=== PATIENT | female | born 1940 | race Caucasian/White ===

== ENCOUNTER 2025-01-15 10:22 | Inpatient (IN) | payer MEDICARE, MEDICAID, SELFPAY ==
[2025-01-13] VITALS (9 sets, daily range): BP systolic 140–203; BP diastolic 84–180; BMI 23.8
[2025-01-13 18:05] LABS: % Basophils 0.5 % (0-2); % Eosinophils 1.9 % (0-6); % Immature Granulocytes 0.2 % (0-0.5); % Lymphocytes 36.7 % (20.5-51.1); % Monocytes 9.5 % (1.7-9.3); % Neutrophils 51.2 % (42.2-75.2); Absolute Eosinophils 0.1 10^3/uL (0-0.7); Absolute Lymphocytes 2.2 10^3/uL (1.2-3.4); Absolute Monocytes 0.6 10^3/uL (0.1-0.6); Hematocrit 36.8 % (37.0-47.0); Hemoglobin 12.7 g/dL (12.0-16.0); Mean Corp Hgb Conc. 34.5 g/dL (33.0-37.0); Mean Corpuscular Hgb 31.8 pg (27.0-31.0); Nucleated Red Blood Cells % 0 %; Platelet Count 172 10^3/uL (130-400); White Blood Cell Count 5.9 10^3/uL (4.8-10.8)
[2025-01-13 18:20] LABS: ALT (SGPT) 19 U/L (0-35); AST (SGOT) 29 U/L (14-36); Albumin 4.3 g/dl (3.5-5.0); Alkaline Phosphatase 129 U/L (38-126); Blood Urea Nitrogen 26 mg/dl (7-17); Carbon Dioxide 27 mmol/L (22-30); Chloride 100 mmol/L (98-107); Glucose 107 mg/dl (70-99); Potassium 4.3 mmol/L (3.5-5.1); Sodium 136 mmol/L (135-145); Total Bilirubin 0.8 mg/dl (0.2-1.3); eGFR > 60.00
[2025-01-13 18:25] LABS: Troponin I 0.013 ng/ml
--- NOTE | 2025-01-13 21:55 | ED.GENMED ---
History of Present Illness
General
Chief Complaint: Heart Rate Problem
Source: patient and records
Time Seen by Provider: 01/13/25 21:29
History of Present Illness
History of Present Illness:
84-year-old female with past medical history of atrial fibrillation status post pacemaker placement, hypertension, hyperlipidemia presenting to the ER from [facility] for evaluation after patient was performing her
rehab yesterday around 10 AM and while performing the activity noticed less than a minutes worth of palpitations and following this felt off for the rest of the day. Based off of report patient states that she was told she went into an episode of
ventricular tachycardia that was found on her pacemaker and this correlated with the time when patient was working out. Patient is on sotalol 40 mg twice daily and reports good compliance with this. She otherwise denies any chest pain, shortness
of breath or any other concerns.
Past History
Past History
ED Past Medical History: Arrthythmia, HTN and Hypercholesterolemia
ED Past Surgical History: Appendectomy, Cardiac, Tonsilectomy and Urological
Social History
Tobacco: Non-smoker
Alcohol: None
Drug: None
Personal: Other
Living: retirement
Employment: Not employed
Family History
Family History: Unable to obtain
Review of Systems
Review of Systems
All Other Systems: ROS reviewed and negative except as documented in HPI and ROS
Phy Exam
Physical Exam
Physical Exam:
GENERAL: Alert , in no apparent distress, Smiling and pleasant
EYE: conjunctiva clear
NECK: Supple
ENT: o/p clr, mmm.
CARDIAC: Regular rate and rhythm
LUNGS: Clear breath sounds bilaterally, no acute respiratory distress, no wheezes/rales/rhonchi
NEUROLOGICAL: Alert and oriented
SKIN: Warm and dry, skin intact.
MUSCULOSKELETAL: well perfused.
PSYCH: Normal and appropriate interaction.
Scores
Heart Failure Risk
Heart Failure Risk Score: Not Applicable
Heart Score for Chest Pain Patients
STEMI patient?: Not applicable
Withdrawal Assessment of Alcohol
Withdrawal Assessment Completed?: Not applicable
Course
Orders/Labs/Results
Orders:
Orders
01/13/25 17:48
EKG [Electrocardiogram (*1)] Urgent
Reason for Study: Tachycardia
01/13/25 17:51
EKG- Treatment ONCE
01/13/25 17:53
Complete Blood Count/With Diff Urgent
Comprehensive Metabolic Panel Urgent
Magnesium Urgent
Comment: ADD ON
TSH Reflex To Free T4 Urgent
Comment: ADD ON
Troponin I Urgent
01/13/25 21:30
Interrogate Pacemaker- Treatment ONCE
01/13/25 21:57
Amiodarone [Cordarone] 150 mg Dextrose 5%/Water 100 ml [D5w] 100 ml IV NOW
01/13/25 23:22
Admit/Transfer Patient As Directed
Co-Sign Provider:
Level of Care: Observation services
Assign to:: Telemetry
Physician / Group: Rebecca/Hospitalist
Diagnosis: 20s Run VT on pacer, palpitations
Reason for Telemetry: Arrhythmia
Date to Stop Telemetry: 01/16/25
Time to Stop Telemetry: 11:00
Reason for Hospitalization: 20s Run VT on pacer, palpitations
PRN Pain Medication Management As Directed
May give lesser potent ordered pain med per pt: Yes
preference::
Protocol:: Medication orders for pain may be administered in a
manner that supports deferring to patient preference
when the pt is:
- Requesting an ordered lesser potent pain medication.
Least to most potent pain medications are defined
as: acetaminophen < NSAID < tramadol < opioids
(morphine, oxycodone, hydromorphone).
- Requesting a lesser dose of the same medication IF
ORDERED.
- Requesting a less intrusive route of administration
if both routes are prescribed by the provider (PO <
IV).
01/13/25 23:30
Code Status As Directed
Resuscitation Status: Do not resuscitate
Reached after discussion with pt or family/Healthcare POA: Yes
DNR Bracelet Application ONCE
01/13/25 23:40
Add On- LAB Stat
Tests Added?: TSH, Mg
01/14/25 00:06
Apixaban [Eliquis] 2.5 mg PO BID
01/16/25 11:00
DC Protocol for Telemetry ONCE
Abnormal Lab Results
01/13/25
17:53
RBC 4.00 L 10^6/uL
(4.20-5.40)
Hct 36.8 L %
(37.0-47.0)
MCH 31.8 H pg
(27.0-31.0)
Monocytes % 9.5 H %
(1.7-9.3)
BUN 26 H mg/dl
(7-17)
Glucose 107 H mg/dl
(70-99)
Calcium 11.0 H mg/dl
(8.4-10.2)
Alkaline Phosphatase 129 H U/L
(38-126)
01/13/25 17:53
01/13/25 17:53
Vital Signs
Initial and Last Documented VS:
Initial Vital Signs
Temp Pulse Resp BP Pulse Ox
98.7 F 68 18 140/92 98
01/13/25 17:42 01/13/25 17:42 01/13/25 17:42 01/13/25 17:42 01/13/25 17:42
Last Documented Vital Signs
Temp Pulse Resp BP Pulse Ox
98.7 F 79 28 189/92 99
01/13/25 17:42 01/13/25 23:00 01/13/25 23:00 01/13/25 22:48 01/13/25 23:00
MDM/Problems Addressed
Differential Diagnosis Includes:
Patient with known episode of ventricular tachycardia based off of pacemaker interrogation
MDM/Problems Addressed:
84-year-old female presenting to the ER for evaluation after she was found to have a 22nd episode of ventricular tachycardia based off pacemaker interrogation done this morning. Patient reports she was feeling palpitations and then felt off for the
remainder of the day. No further episodes of cardiac arrhythmia/dysrhythmia. Will consult with cardiology team here. Patient currently on sotalol which could be potential cause for the ventricular tachycardia. Suspect patient will need to be
admitted.
Chronic conditions affecting care: Arrhythmia
Acute Exacerbation and/or Progression of Chronic Illness: Arrhythmia
*Pulse Oximetry
Patient hypoxic: no
*Critical Care Note
Total Time (30-74mins, 75-104mins- exclusive of procedures): Not Applicable
Data Reviewed
Review of Other/Old Records Reveals: Labs and Records
Patient Management
Discussion with other providers: Hospitalist and Chicken Tender
Escalation/DeEscalation of care consider admission/obs:
Spoke to foreign exchange trader, Dr. Aldana, recommends admission to the hospital. Discontinue sotalol and initiate patient on amiodarone. Will give 150 mg bolus IV now. Hospitalist team to admit.
ED Attending Note
-
Portions of this chart may have been created with voice recognition software.� Occasional wrong word or��sound alike� substitutions may have occurred due to the inherent limitations of voice recognition software.
Discharge Plan
Departure
Patient Disposition: Admit
Date of Disposition: 01/13/25
Time of Disposition: 21:55
Presentation/result/management discussed w/ accepting MD/DO: Hospitalist
Discharge Problem:
Ventricular tachycardia
Interventions
Interventions:
*Risk Screen - Suicide Last Done: 01/13/25 17:42
*General Assessment Last Done: 01/13/25 17:42
*Neglect/Abuse Screening Last Done: 01/13/25 17:42
*ED COVID-19 Vaccine History Last Done: 01/13/25 17:42
ED- Cardiac Assessment Last Done: 01/13/25 23:30
ED- Pulmonary Assessment Last Done: 01/13/25 23:30
[2025-01-13] MEDS: CORDARONE 103 MG IV (22:30)
--- NOTE | 2025-01-13 23:43 | HPS.HSE ---
Family Physician
-
Family Physician: Maxime Greene,
Chief Complaint
-
Run of ventricular tachycardia, palpitations
History of Present Illness
The patient is an 84-year-old woman with past medical history significant for atrial fibrillation status post pacemaker placement, essential hypertension, hyperlipidemia presented to the emergency department from [facility]
facility for an episode of palpitations that she experienced while she was performing physical therapy and riding a bicycle yesterday at her center around 10 AM. She denies any chest pain or associated shortness of breath, no dizziness, no
lightheadedness, no syncope. She denied headache nor any neurologic deficits. She does note that for the past 2 weeks she has been experiencing increased fatigue and those are her only symptoms other than the episode of palpitations she
experience. Her Biotronik pacemaker noted the 20 second run of ventricular tachycardia during this episode. The patient takes 40 mg p.o. twice daily of sotalol. She takes Eliquis twice a day but does not know the dosing tonight. The ED provider
discussed the patient with our wait staff and they recommended stopping the sotalol for now and giving 1 dose of amiodarone 150 mg IV. The patient received that tonight in the emergency department. She typically sees a wait staff at [facility].
ED txt:
Amiodarone 150 mg IV once
Medical History
Past Medical History
Past Medical History: Reports Arrhythmia (a.fib RVR), HTN and Hypercholesterolemia
Past Surgical History: Reports Appendectomy, Cardiac, Orthopedic (hip fx), Tonsilectomy and Urological
Social History
Tobacco: Non-smoker
Alcohol: None
Drug: None
Personal:
Living: [facility] (Lives at [facility]. Her has Alzheimer's and lives across the hallway from her at [place].)
Family History
Family History: CAD (Mother)
Allergies / Home Medications
Allergies reflects when Allergies were last updated in [employer].
Home Medications with original date entered in [employer]
Allergy/Medication List:
Allergies
Allergy/AdvReac Type Severity Reaction Status Date / Time
codeine Allergy Unknown Verified 01/13/25 17:47
morphine Allergy Unknown Verified 01/13/25 17:47
Penicillins Allergy Unknown Verified 01/13/25 17:47
Home Medications
atorvastatin 40 mg tablet 40 mg PO DAILY High cholesterol 02/07/22
ezetimibe 10 mg tablet 10 mg PO DAILY High cholesterol 02/07/22
ferrous sulfate 325 mg (65 mg iron) tablet (FeroSul) 325 mg PO DAILY Supplement 02/07/22
sotalol 80 mg tablet 40 mg PO BID Blood pressure 02/07/22
spironolactone 25 mg tablet 12.5 mg PO DAILY Fluid retention/Swelling 02/07/22
docusate sodium 100 mg capsule 100 mg PO BID 02/10/22
sennosides 8.6 mg tablet (senna) 2 tab PO BID 02/10/22
acetaminophen 325 mg tablet 650 mg PO Q6H PRN fever>100 04/09/22
bisacodyl 10 mg rectal suppository (OneLAX Bisacodyl) 10 mg AL DAILY PRN if mom ineffective 04/09/22
divalproex 125 mg tablet,delayed release 125 mg PO BID Seizures 04/09/22
magnesium hydroxide 400 mg/5 mL oral suspension 30 ml PO DAILY PRN if no bm x 3 days 04/09/22
melatonin 3 mg tablet 3 mg PO HS Sleep 04/09/22
sodium phosphates 19 gram-7 gram/118 mL enema (Enema) 118 ml AL DAILY PRN if dulcolax ineffective 04/09/22
oxycodone 5 mg tablet 5 mg PO Q4H PRN moderate pain 3 days #10 tabs 06/01/22
warfarin 2.5 mg tablet (Jantoven) 2.5 mg PO QPM 30 days #30 tabs 06/01/22
Review of Systems
-
A 12 point ROS was completed and negative except as noted: Yes
Physical Exam
Vital Signs
Vital Signs
Temp Pulse Resp BP Pulse Ox
98.7 F 79 28 189/92 99
01/13/25 17:42 01/13/25 23:00 01/13/25 23:00 01/13/25 22:48 01/13/25 23:00
Physical Exam
General: Well Developed, Well Nourished, No Apparent Distress, Comfortable and Conversant
HEENT: NormoCephalic and Anicteric
Respiratory: Clear
Cardiac: S1/S2 and Regular Rhythm
GI: Soft, Non Tender and Non Distended
Musculoskeletal: No Clubbing, No Cyanosis, Edema, Left Lower Extremity and Edema, Right Lower Extremity
Skin: Warm and Dry
Neuro: AO x 3 and No Motor Deficits
Psych: Calm
Laboratory Results
-
01/13/25 17:53
01/13/25 17:53
Laboratory Results
Total Bilirubin 0.8 mg/dl (0.2-1.3) 01/13/25 17:53
AST 29 U/L (14-36) 01/13/25 17:53
ALT 19 U/L (0-35) 01/13/25 17:53
Alkaline Phosphatase 129 U/L (38-126) H 01/13/25 17:53
Troponin I 0.013 ng/ml 01/13/25 17:53
Data Reviewed
-
Medical Tests (Nuc Med, Echo, EKG etc): Image Personally Visualized and interpreted and Report Reviewed by me (Atrial-paced rhythm with prolonged AV conduction, incomplete RBBB, paced)
Impression/Plan
-
IMPRESSION:
The patient is an 84-year-old woman with past medical history significant for atrial fibrillation status post pacemaker placement, essential hypertension, hyperlipidemia presented to the emergency department from [facility]
facility for an episode of palpitations that she experienced while she was performing physical therapy and riding a bicycle yesterday at her center around 10 AM. She denies any chest pain or associated shortness of breath, no dizziness, no
lightheadedness, no syncope. She denied headache nor any neurologic deficits. She does note that for the past 2 weeks she has been experiencing increased fatigue and those are her only symptoms other than the episode of palpitations she
experience. Her Biotronik pacemaker noted the 20 second run of ventricular tachycardia during this episode. The patient takes 40 mg p.o. twice daily of sotalol. She takes Eliquis twice a day but does not know the dosing tonight. The ED provider
discussed the patient with our wait staff and they recommended stopping the sotalol for now and giving 1 dose of amiodarone 150 mg IV. The patient received that tonight in the emergency department. She typically sees a wait staff at [facility].
ED txt:
Amiodarone 150 mg IV once
# Palpitations associated with a 20 second episode of ventricular tachycardia yesterday on Biotronik pacemaker interrogation
-currently asymptomatic
-Cardiology has been consulted. He recommended stopping sotalol for now and giving amiodarone IV x 1 this evening. Will continue to hold sotalol for now and await cardiology recommendations regarding antiarrhythmic.
-Await cardiology recommendation regarding echocardiogram
-check Mg, TSH
#Mild hypercalcemia 11.0
-repeat labs in am after IVF and monitor, normal albumin
#Hypertension, essential
-Need to perform medication reconciliation. The patient does not recall her medications at this time. The patient thinks her only blood pressure pill is the sotalol which is being held at this time.
-Will give as needed antihypertensive tonight and perform medication reconciliation.
#Hyperlipidemia
DVT proph- Eliquis
DNR
[2025-01-14] VITALS (11 sets, daily range): BP systolic 98–175; BP diastolic 67–90; BMI 22.1
[2025-01-14] MEDS: ELIQUIS 2.5 MG PO (00:19)
[2025-01-14 00:32] LABS: Magnesium 1.7 mg/dl (1.6-2.3)
[2025-01-14 01:03] LABS: TSH Reflex To Free T4 1.52 uIU/ml (0.47-4.68)
[2025-01-14] MEDS: NSS 1000 IV (02:05)
[2025-01-14 07:11] LABS: Blood Urea Nitrogen 15 mg/dl (7-17); Calcium 10.7 mg/dl (8.4-10.2); Carbon Dioxide 28 mmol/L (22-30); Chloride 107 mmol/L (98-107); Estimated Creatinine Clearance 58 ml/min; Glucose 94 mg/dl (70-99); Potassium 4.1 mmol/L (3.5-5.1); Sodium 140 mmol/L (135-145); eGFR > 60.00
--- NOTE | 2025-01-14 08:10 | W.PN.HOSP.TC ---
Today's Communication/Plan
-
No known
Assessment / Plan
Assessment / Plan
Problem list
Nonsustained ventricular tachycardia
History of atrial fibrillation s/p pacemaker placement
Hypercalcemia
Hypertension
Hyperlipidemia
# Nonsustained ventricular tachycardia possibly secondary to QT prolongation from medication related vs cardiac ischemia
-Patient admitted to IV-monitor telemetry
-Patient has Biotronik pacemaker-was placed due to A-fib per patient report
-Patient`s EKG shows atrial paced rhythm
- Based on records it lasted in 20 seconds
- Patient was given amiodarone at the admission and her sotalol was stopped
- Seen by cardiology recommended for left heart catheterization with the plan switching to [employer] PLANNING COUNSELOR-D from pacemaker
# Hypercalcemia
- Calcium decreased to 10.6 following IV hydration-continue IV fluids
- Patient has persistent hypercalcemia checking her previous lab results
-No history of cancer
-TSH 1.52 , ALP 129
- Vitamin D, PTH, ionized calcium level was ordered
# Hypertension
-As needed blood pressure medications
# Hyperlipidemia
-Continue atorvastatin
# History of A-fib
-Continue Eliquis
# DVT prophylaxis-Eliquis
Anticipated Discharge: 24 - 48 hours
Subjective/Interval History
-
Date of Service: January 14, 2025
Patient denies any events overnight. The patient denies chest pain, back pain, shortness of breath, palpitations and dizziness.
Objective Data
-
Labs:
Laboratory Results
01/14/25
06:45
Sodium 140
Potassium 4.1
Chloride 107
Carbon Dioxide 28
BUN 15
Creatinine 0.7
Glucose 94
Calcium 10.7 H
Vital Signs:
Vital Signs
Temp Pulse Resp BP Pulse Ox
98.7 F 73 17 129/83 99
01/13/25 17:42 01/14/25 06:46 01/14/25 05:15 01/14/25 06:46 01/14/25 06:45
I&O
01/13/25 01/14/25 01/15/25
06:59 06:59 06:59
Output Total 350 / 350
Balance -350 / -350
Review of Systems
-
History Source: Patient
EENT: Reports No Symptoms Reported
Respiratory: Reports No Symptoms
Cardiac: Reports No Symptoms
Abdomen/GI: Reports No Symptoms
Musculoskeletal: Reports No Symptoms
Skin: Reports No Symptoms
Neuro: Reports No Symptoms
Physical Exam
-
General: Well Developed and Well Nourished
HEENT: Normocephalic and Atraumatic
Respiratory: Clear to Auscultation
Cardiac: S1/S2 and Other (Patient has pacemaker)
GI: Soft, Nontender and Nondistended
Musculoskeletal: No Clubbing, No Cyanosis and No Edema
Neuro: Awake, Alert, Oriented and Nonfocal/Grossly Intact
Psych: Calm
--- NOTE | 2025-01-14 08:34 | CON.CAR ---
Addendum entered and electronically signed by Mickie Aldana MD 01/14/25 13:55:
Patient seen and evaluated personally. I agree with the plan of care, documentation and physical examination as discussed with nurse practitioner.
Briefly, 84-year-old woman with history of atrial fibrillation likely paroxysmal on sotalol and apixaban was noted to have long duration of ventricular tachycardia as documented by Biotronik pacemaker interrogation. Patient has dual-chamber
pacemaker on the right shoulder.
Patient's sotalol dose was 40 mg twice a day and was low-dose for her without any significant QT prolongation. With discontinuation of sotalol, we gave a dose of IV amiodarone without any change in QTc.
We will start patient on amiodarone and plan for cardiac catheterization to rule out any significant ischemic precipitant for ventricular arrhythmia.
Will discuss again in detail if patient would be a candidate for an ICD upgrade. Patient's initial understanding was that the Biotronik pacemaker is not MRI compatible. If we can place patient's pacemaker lead into RHEOLOGIST-D device we might be able to
make it MRI compatible.
Original Note:
Consultation
Consultation Request
Date/Time Consultation Requested: 01/14/2025 01:45
Date/Time Consultation Performed: 01/14/2025 08:00
Requesting Provider: Dr. Fernandez
Performing Provider: YAMILETH Dunham for Dr. Aldana
Reason for Consultation: Ventricular tachycardia
Medical History
-
Chief Complaint: Palpitations
History of Present Illness:
Dennise Rosenthal is an 84-year-old female (known to Dr. Falcon, her primary senior controller), with atrial fibrillation (on sotalol and apixaban), Biotronik PPM, hypertension, dyslipidemia, and prior brain bleed in the setting of a fall who presented from
[facility] after experiencing an episode of palpitations while performing physical therapy on a bicycle. She had the sudden onset of palpitations. No associated shortness of breath, dizziness,
lightheadedness/presyncope/syncope. For the past 2 weeks, she has been having increased fatigue. Her Biotronik pacemaker revealed 20 seconds of ventricular tachycardia. EGM is pending for review. She reports adherence with her medical therapy as
her medications are provided to her at [facility]. Sotalol was stopped. Amiodarone 150 mg IV was given in the ER early this morning. Telemetry has been stable.
Her daughters reside in [place]. They are aware of the admission.
Past Medical History
Past Medical History: Arrhythmias (Paroxysmal atrial fibrillation [on sotalol and apixaban]), HTN, Hypercholesterolemia and Other (Brain bleed secondary to a fall)
Past Surgical History: Appendectomy, Orthopedic and Urological
Social History
Tobacco: Non-Smoker
Alcohol: None
Personal: ( with Alzheimer's also at [facility])
Living: Prison ([facility])
Employment: Retired
Family History
Family History: Reviewed & Not Pertinent
Allergies / Home Medications
Allergy/AdvReac Type Severity Reaction Status Date / Time
codeine Allergy Unknown Verified 01/13/25 17:47
morphine Allergy Unknown Verified 01/13/25 17:47
Penicillins Allergy Unknown Verified 01/13/25 17:47
�Medication �Instructions �Recorded �Confirmed �Type
atorvastatin 40 mg tablet 40 mg PO DAILY High cholesterol 02/07/22 05/28/22 History
ezetimibe 10 mg tablet 10 mg PO DAILY High cholesterol 02/07/22 05/28/22 History
ferrous sulfate 325 mg (65 mg 325 mg PO DAILY Supplement 02/07/22 05/28/22 History
iron) tablet (FeroSul)
sotalol 80 mg tablet 40 mg PO BID Blood pressure 02/07/22 05/28/22 History
spironolactone 25 mg tablet 12.5 mg PO DAILY Fluid 02/07/22 05/28/22 History
retention/Swelling
docusate sodium 100 mg capsule 100 mg PO BID 02/10/22 05/28/22 Rx
sennosides 8.6 mg tablet (senna) 2 tab PO BID 02/10/22 05/28/22 Rx
acetaminophen 325 mg tablet 650 mg PO Q6H PRN fever>100 04/09/22 05/28/22 History
bisacodyl 10 mg rectal suppository 10 mg MT DAILY PRN if mom 04/09/22 05/28/22 History
(OneLAX Bisacodyl) ineffective
divalproex 125 mg tablet,delayed 125 mg PO BID Seizures 04/09/22 05/28/22 History
release
magnesium hydroxide 400 mg/5 mL 30 ml PO DAILY PRN if no bm x 3 04/09/22 05/28/22 History
oral suspension days
melatonin 3 mg tablet 3 mg PO HS Sleep 04/09/22 05/28/22 History
sodium phosphates 19 gram-7 118 ml MT DAILY PRN if dulcolax 04/09/22 05/28/22 History
gram/118 mL enema (Enema) ineffective
oxycodone 5 mg tablet 5 mg PO Q4H PRN moderate pain 3 06/01/22 Rx
days #10 tabs
warfarin 2.5 mg tablet (Jantoven) 2.5 mg PO QPM 30 days #30 tabs 06/01/22 Rx
Review of Systems
-
History Source: Patient
All other systems: Negative unless noted
Constitutional: Fatigue
EENT: No Symptoms
Respiratory: No Symptoms
Cardiac: No Symptoms
Abdomen/GI: No Symptoms
: No Symptoms
Musculoskeletal: No Symptoms
Skin: No Symptoms
Neurological: No Symptoms
Endocrine: No Symptoms
Hematologic/Lymphatic: No Symptoms
Physical Exam
Vital Signs
Temp Pulse Resp BP Pulse Ox
98.7 F 76 17 129/83 99
01/13/25 17:42 01/14/25 08:00 01/14/25 05:15 01/14/25 06:46 01/14/25 06:45
Lab Results
01/13/25 17:53
01/14/25 06:45
Troponin I 0.013 ng/ml 01/13/25 17:53
Physical Exam
General: Well Developed, Well Nourished and No Apparent Distress
HEENT: Normocephalic, Anicteric and Moist Mucous Membranes
Respiratory: Clear and Non Labored Respirations
Cardiac: S1/S2 and Regular Rhythm
Breast: Deferred by me
GI: Soft, Non Tender, Non Distended and Normal Bowel Sounds
Rectal: Deferred by Provider
Genito-urinary: No Costovertebral Tender
Musculoskeletal: No Clubbing, No Cyanosis and No Edema
Skin: Warm and Dry
Neuro: AO x 3
Hematologic/Lymphatic: No Lymphadenopathy
Psych: Calm
Impression / Plan
-
I/P: 84F with atrial fibrillation (on sotalol and apixaban), Biotronik PPM, hypertension, dyslipidemia, and prior brain bleed in the setting of a fall who presented from [facility] after experiencing an episode of
palpitations while performing physical therapy on a bicycle -> 20 beats of VT on Biotronik device
Outpatient senior controller: Dr. Hawk Falcon, records were requested
Ventricular tachycardia
-Symptoms of palpitations, no syncope/presyncope, no electrolyte abnormalities
-Sotalol stopped, amiodarone 150 mg given in ER
-Follow telemetry
-Cardiac catheterization on Thursday, if no acute findings we will proceed to ICD lead placement
-She has a right sided Biotronik device, device rep has been contacted
Biotronik pacemaker
-Right-sided device, may need ICD lead upgrade
-Prior documentation reflects that this device is NOT MRI compatible
Atrial fibrillation, type unknown
-In sinus
-Oral Anticoagulation: Apixaban, hold Thursday morning's dose prior to cardiac catheterization with possible ICD lead placement
- [id number]: Score at least 4 (HTN, age 75 or more, female gender)
Hypertension
-Await medication list from facility prior to ordering medications
iRBBB, chronicity unknown, not present on 2021 EKG
Dyslipidemia, med list pending
Prior brain bleed secondary to a fall
SUBJECTIVE: As above.
Data Reviewed
-
EKG: Report Reviewed by me (As above)
Labs: Labs Reviewed by me
Old Records: Reviewed
[2025-01-14] MEDS: ELIQUIS PO (10:32)
[2025-01-14] MEDS: ELIQUIS 5 MG PO ×2 (11:23→20:40)
--- NOTE | 2025-01-14 12:58 | CM ---
Patient resides @ [facility]
CM spoke with patient's daughter, Emely via phone # [phone]; [employer] form explained; dated/timed @ 1305
Per caregiver at the facility and daughter, patient was independent with personal care and also cared for her at the facility;
patient mobilized with a wheelchair and able to feed self
Bed on Hold
Patient transferred to Interventional Cardiac Unit
Plan: return to B[facility] when medically stable: CM will follow patient during acute stay and support discharge planning as needed
--- NOTE | 2025-01-14 13:53 | PTCARENOTE ---
Received patient from ER. Patient fully alert and oriented, very pleasant. Denies pain. Afebrile, 97.6 F. Ambulates at baseline with walker/rollator. Patient weight upon arrival to IVU 63.8 kg on standing scale. Assistance x2 used to maintain
standing position due to generalized weakness. Patient on room air, denies shortness of breath. Patient has R sided ICD, HR 65, paced rhythm. BP hypertensive in 170s systolic upon arrival, recheck after being settled in and BP 144/89. Pulses
palpable in upper and lower bilateral extremities. Skin intact. Purewick placed per patient request, states that she has some infrequent incontinence. PIV in place.
--- NOTE | 2025-01-14 14:31 | W.PN.UPDATE ---
Update Note
Progress Note Update
I saw and evaluated the patient. I reviewed the resident�s note and agree with findings and plan as documented in the resident�s note.
1. NSVT -patient run of NSVT lasting 20 seconds. Patient had some palpitation no associated dizziness/chest discomfort/breathing issues reported. Potential causes is QTc prolongation from sotalol versus ischemic cardiomyopathy. No major
electrolyte imbalances noted at admission . patient have pacemaker placed for A-fib? Cardiology evaluated and patient being taken off of sotalol and given IV amiodarone for further management. EP cardiology has recommended for patient to undergo
left heart catheterization and possible switching to OFFICE SUPPORT CLERK-D from pacemaker. Patient being admitted to IVU, monitor on telemetry
2. Hypercalcemia -patient calcium is improved to 10.6 after IV hydration although not normal. On previous visits patient have some persistent hypercalcemia at times. Patient does not take any oral calcium/vitamin D supplements. Check vitamin
D/PTH/ionized calcium level. Continue IV fluid for now -will need to adjust if any concern of volume overload/congestion
3. Paroxysmal A-fib/pacemaker -EKG reviewed and patient currently in atrial paced rhythm.
Full code
Total time spent : 53 mins
--- NOTE | 2025-01-14 21:14 | PTCARENOTE ---
Received pt @ change of shift. AAOx3. VSS. Denies SOB and palpitations. Reconciled med list. Discussed plan of care for evening. Pt verbalized understanding. Call graves within reach.
[2025-01-15] VITALS (7 sets, daily range): BP systolic 121–153; BP diastolic 68–87; BMI 21.9
[2025-01-15 05:14] LABS: Ionized Calcium 1.37 mMOL/L (1.15-1.33)
[2025-01-15 05:17] LABS: Hematocrit 38.3 % (37.0-47.0); Hemoglobin 13.2 g/dL (12.0-16.0); Mean Corp Hgb Conc. 34.5 g/dL (33.0-37.0); Mean Corpuscular Hgb 31.6 pg (27.0-31.0); Mean Corpuscular Volume 91.6 fL (81.0-99.0); Mean Platelet Volume 10.1 fL (7.4-10.4); Platelet Count 158 10^3/uL (130-400); Red Blood Cell Count 4.18 10^6/uL (4.20-5.40); Red Cell Dist. Width 13.2 % (11.5-14.5); White Blood Cell Count 5.7 10^3/uL (4.8-10.8)
--- NOTE | 2025-01-15 05:38 | PTCARENOTE ---
Pt had a restful night. No c/o of palpitations. No runs of VT.
[2025-01-15 05:42] LABS: ALT (SGPT) 20 U/L (0-35); AST (SGOT) 27 U/L (14-36); Albumin 4.3 g/dl (3.5-5.0); Alkaline Phosphatase 121 U/L (38-126); Blood Urea Nitrogen 18 mg/dl (7-17); Calcium 11.2 mg/dl (8.4-10.2); Carbon Dioxide 28 mmol/L (22-30); Chloride 107 mmol/L (98-107); Estimated Creatinine Clearance 51 ml/min; Glucose 94 mg/dl (70-99); Magnesium 1.8 mg/dl (1.6-2.3); Potassium 4.4 mmol/L (3.5-5.1); Sodium 142 mmol/L (135-145); Total Bilirubin 0.9 mg/dl (0.2-1.3); Total Protein 6.8 g/dl (6.3-8.2); eGFR > 60.00
[2025-01-15 05:51] LABS: Intact PTH 65.4 pg/ml (13.6-85.8)
[2025-01-15 05:56] LABS: Vitamin D, 25-OH*** 63.6 ng/mL (30-80)
--- NOTE | 2025-01-15 07:50 | W.PN.HOSP.TC ---
Today's Communication/Plan
-
-Follow up telemetry monitoring
-Amiodarone 200 mg twice daily started
-Cardiac catheterization is planning on Thursday
-Hold Thursday morning Eliquis dose
Assessment / Plan
Assessment / Plan
Problem list
Nonsustained ventricular tachycardia
History of atrial fibrillation s/p pacemaker placement
Hypercalcemia
Hypertension
Hyperlipidemia
# Nonsustained ventricular tachycardia possibly secondary to QT prolongation from medication related vs cardiac ischemia
-Patient has Biotronik pacemaker-was placed due to A-fib per patient report
-Based on pacemaker records VT lasted in 20 seconds
-Patient admitted to IV-monitor telemetry
-Patient`s EKG shows atrial paced rhythm
-Patient was given amiodarone at the admission and her sotalol was stopped
-Cardiology on board -recommended for left heart catheterization with the plan switching to WESTERN FELT HAT BLOCKER-D from pacemaker on Thursday
- Started on amiodarone 200 mg twice daily today due to symptoms of palpitation
- Hold Eliquis Thursday morning dose
# Hypercalcemia
- Calcium remains elevated to 11.2
-ionized ca 1.37, ALP 121, VIT D 63.6, PTH 65.4, mg 1.8
- Patient has persistent hypercalcemia checking her previous lab results
-No history of cancer
-TSH 1.52 , ALP 129
- Vitamin D, PTH, ionized calcium level was ordered
-PTHrP ordered-Need to follow with an Health Sciences Manager OP
# Hypertension
-As needed blood pressure medications
# Hyperlipidemia
-Continue atorvastatin
# History of A-fib
-Continue Eliquis
# DVT prophylaxis-Eliquis
Anticipated Discharge: 24 - 48 hours
Subjective/Interval History
-
Date of Service: January 15, 2025
No acute events since overnight. Patient denies chest pain, shortness of breath and palpitations.
Objective Data
-
Labs:
Laboratory Results
01/15/25
05:08
WBC 5.7
Hgb 13.2
Hct 38.3
Plt Count 158
Sodium 142
Potassium 4.4
Chloride 107
Carbon Dioxide 28
BUN 18 H
Creatinine 0.8
Glucose 94
Calcium 11.2 H
Total Bilirubin 0.9
AST 27
ALT 20
Alkaline Phosphatase 121
Vital Signs:
Vital Signs
Temp Pulse Resp BP Pulse Ox
98.2 F 66 14 147/82 97
01/15/25 04:41 01/15/25 05:30 01/15/25 04:41 01/15/25 04:43 01/15/25 04:41
I&O
01/14/25 01/15/25 01/16/25
06:59 06:59 06:59
Output Total 350 / 350 250 / 250
Balance -350 / -350 -250 / -250
Review of Systems
-
History Source: Patient
Constitutional: Reports No Symptoms
EENT: Reports No Symptoms Reported
Respiratory: Reports No Symptoms
Cardiac: Reports No Symptoms
Abdomen/GI: Reports No Symptoms
Musculoskeletal: Reports No Symptoms
Skin: Reports No Symptoms
Neuro: Reports No Symptoms
Endocrine: Reports No Symptoms
Physical Exam
-
General: Well Developed, Well Nourished and Comfortable
HEENT: Normocephalic and Atraumatic
Respiratory: Clear to Auscultation
Cardiac: S1/S2, Tachycardic and Other (Patient has pacemaker)
GI: Soft, Nontender and Nondistended
Musculoskeletal: No Clubbing and No Cyanosis
Skin: Warm
Neuro: Awake, Alert, Oriented and AO x 3
[2025-01-15] MEDS: COLACE 100 MG PO (08:33)
[2025-01-15] MEDS: ELIQUIS 5 MG PO ×2 (08:33→20:15)
--- NOTE | 2025-01-15 09:57 | W.PN.CD ---
Today's Communication / Plan
-
- Will start Amiodarone 200 mg BID and switch to 200 mg QD at discharge.
- Cath in AM and if no culprit lesion noted for VT, then upgrade PPM to ICD.
Impression / Plan
-
I/P: 84F with atrial fibrillation (on sotalol and apixaban), Biotronik PPM, hypertension, dyslipidemia, and prior brain bleed in the setting of a fall who presented from [facility] after experiencing an episode of
palpitations while performing physical therapy on a bicycle -> 20 beats of VT on Biotronik device
Outpatient director of first impressions: Dr. Hawk Falcon, records were requested
Ventricular tachycardia
-Symptoms of palpitations, no syncope/presyncope, no electrolyte abnormalities - diagnosis is a threat to life.
-Sotalol stopped, amiodarone 150 mg given in ER
-Will start 200 mg BID today
-Follow telemetry
-Cardiac catheterization on Thursday, if no acute findings we will proceed to ICD lead placement
-She has a right sided Biotronik device, device rep has been contacted
Biotronik pacemaker
-Right-sided device, may need ICD lead upgrade
-Prior documentation reflects that this device is NOT MRI compatible
Atrial fibrillation, type unknown
-In sinus
-Oral Anticoagulation: Apixaban, hold Thursday morning's dose prior to cardiac catheterization with possible ICD lead placement
- [id number]: Score at least 4 (HTN, age 75 or more, female gender)
Hypertension
-Await medication list from facility prior to ordering medications
iRBBB, chronicity unknown, not present on 2021 EKG
Dyslipidemia, med list pending
Prior brain bleed secondary to a fall
SUBJECTIVE:
Denies any presyncope with sustained VT noted on PPM. Still have NSVT and PVCs.
Physical Exam
Vital Signs/Labs
Vital Signs
Temp Pulse Resp BP Pulse Ox
98.5 F 77 18 121/68 98
01/15/25 08:28 01/15/25 08:21 01/15/25 08:28 01/15/25 08:21 01/15/25 08:28
01/14/25 01/15/25 01/16/25
06:59 06:59 06:59
Actual Weight 69 kg 63.4 kg
01/15/25 05:08
01/15/25 05:08
Magnesium 1.8 mg/dl (1.6-2.3) 01/15/25 05:08
LAB Results
01/13/25
17:53
Troponin I 0.013
Physical Exam
Constitutional: No acute distress and Comfortable
EENT: Anicteric and Moist mucous membranes
Cardiovascular: Rhythm & rate is regular, Pedal edema is absent and JVD pressure is normal
Respiratory: Respiratory effort normal, Lungs clear to auscul. and Wheeze Absent
GI: Soft, Distention absent, Non tender and Normal bowel sounds
Neuro/Psych: Alert, Oriented and AO x 3
Data Reviewed
-
Date of Service: January 15, 2025
Medical Decision Making: Reviewed Test Results, Test Interpretation and Review of Case with other Provider
EKG: Tracing Personally Visualized and interpreted
Echo: Report Reviewed by me
Labs: Labs Reviewed by me
Old Records: Reviewed
[2025-01-15] MEDS: PACERONE 200 MG PO ×2 (10:39→20:15)
--- NOTE | 2025-01-15 19:43 | PTCARENOTE ---
Pt with mild discomfort in left arm IV site which was slightly red and tender, IV device removed, ice pack applied. Pt denies any other discomfort. Telemetry shows sinus rhythm with some atrial pacing and occasional PVC's. Pt OOB to BR with assist
of one using a walker. Plan for left heart cath and upgrade to ICD on 01/16.
[2025-01-16] VITALS (18 sets, daily range): BP systolic 83–160; BP diastolic 54–78; BMI 22.6
[2025-01-16 04:43] LABS: Hematocrit 36.7 % (37.0-47.0); Hemoglobin 12.4 g/dL (12.0-16.0); Mean Corp Hgb Conc. 33.8 g/dL (33.0-37.0); Mean Corpuscular Hgb 31.4 pg (27.0-31.0); Mean Corpuscular Volume 92.9 fL (81.0-99.0); Mean Platelet Volume 10.2 fL (7.4-10.4); Platelet Count 158 10^3/uL (130-400); Red Blood Cell Count 3.95 10^6/uL (4.20-5.40); Red Cell Dist. Width 13.2 % (11.5-14.5); White Blood Cell Count 6.7 10^3/uL (4.8-10.8)
[2025-01-16 05:04] LABS: ALT (SGPT) 17 U/L (0-35); AST (SGOT) 24 U/L (14-36); Albumin 3.7 g/dl (3.5-5.0); Alkaline Phosphatase 126 U/L (38-126); Blood Urea Nitrogen 20 mg/dl (7-17); Calcium 11.3 mg/dl (8.4-10.2); Carbon Dioxide 28 mmol/L (22-30); Chloride 106 mmol/L (98-107); Estimated Creatinine Clearance 51 ml/min; Glucose 93 mg/dl (70-99); Sodium 139 mmol/L (135-145); Total Bilirubin 0.8 mg/dl (0.2-1.3); Total Protein 6.2 g/dl (6.3-8.2); eGFR > 60.00
--- NOTE | 2025-01-16 06:29 | PTCARENOTE ---
Pt A paced on monitor. VSS denies pain or any discomfort. NPO for cath. OOB with x 1 assist and RW. call graves in reach
[2025-01-16] MEDS: LOW STRENGTH ASPIRIN 324 MG PO (08:12)
[2025-01-16] MEDS: PACERONE 200 MG PO ×2 (08:12→19:43)
[2025-01-16] MEDS: COLACE PO (08:12)
--- NOTE | 2025-01-16 08:40 | W.PN.CD ---
Today's Communication / Plan
-
Echocardiogram.
Cardiac catheterization today.
Possible ICD/ROUTER TENDER-D upgrade to follow.
Impression / Plan
-
Impression/Plan: 84F with atrial fibrillation (on sotalol and apixaban), Biotronik PPM, hypertension, dyslipidemia, and prior brain bleed in the setting of a fall who presented from [facility] after experiencing an episode of
palpitations while performing physical therapy on a bicycle. PPM interrogation shows 20 seconds of VT.
#Ventricular tachycardia
-Acute, diagnosis is a threat to life.
-Symptoms of palpitations, no syncope/presyncope, no electrolyte abnormalities.
-Sotalol stopped, amiodarone 150 mg IV given in ER, followed by 200 mg PO BID.
-Cardiac catheterization today to clarify coronary anatomy as a source for VT.
-Possible ICD/ROUTER TENDER-D upgrade.
#Biotronik pacemaker
-Chronic, stable.
-Right-sided device. May need ICD lead upgrade.
-Prior documentation reflects that this device is NOT MRI compatible.
#Atrial fibrillation
-Presumably paroxysmal.
-Currently in sinus vs. A-paced.
-Rate/rhythm control with amiodarone.
-[id number]: Score at least 4 (HTN, age 75 or more, female gender)
-Oral Anticoagulation: Apixaban, held this morning dose prior to cardiac catheterization with possible ICD lead placement.
#Hypertension
-Chronic, stable.
-Await medication list from facility prior to ordering medications.
#Hypercalcemia
-Reportedly chronic.
-Ca 11.3, PTH 65.4. PTHRP pending.
-Dx is likely primary hyperparathyroidism, but it is unclear if she would want surgical treatment.
#iRBBB
-Chronicity unknown, not present on 2021 EKG.
#Dyslipidemia
-Probably chronic.
-Med list pending.
#Prior brain bleed
-Secondary to a fall by report.
-Unclear severity and etiology (SAH vs. epidural hematoma vs. subdural hematoma).
-Currently tolerating anticoagulation.
Outpatient factory maintenance technician: Dr. Hawk Falcon
Subjective/Interval History:
No further VT on monitor.
BP remains mildly elevated (140's).
She feels well.
Physical Exam
Vital Signs/Labs
Vital Signs
Temp Pulse Resp BP Pulse Ox
36.8 C 63 20 143/76 100
01/16/25 07:11 01/16/25 07:30 01/16/25 07:11 01/16/25 07:11 01/16/25 07:11
01/14/25 01/15/25 01/16/25
11:59 11:59 11:59
Actual Weight 69 kg 63.4 kg 65.4 kg
01/16/25 03:52
01/16/25 03:52
Magnesium 1.8 mg/dl (1.6-2.3) 01/15/25 05:08
LAB Results
01/13/25
17:53
Troponin I 0.013
Physical Exam
Constitutional: No acute distress and Comfortable
EENT: Anicteric and Moist mucous membranes
Cardiovascular: Rhythm & rate is regular, Pedal edema is absent, JVD pressure is normal, S1S2 is normal and Murmur/rub/gallop absent
Respiratory: Respiratory effort normal, Lungs clear to auscul., Wheeze Absent, Crackles Absent and Rhonchi Absent
GI: Soft, Distention absent, Flat, Non tender and Normal bowel sounds
Neuro/Psych: AO x 3
Data Reviewed
-
Date of Service: January 16, 2025
Medical Decision Making: Reviewed Test Results, Tests Ordered, Independent Historian Assessment and Test Interpretation
EKG: Tracing Personally Visualized and interpreted and Report Reviewed by me
X-Ray/CT/US/MRI/NUC/PET: Report Reviewed by me
Labs: Labs Reviewed by me
Old Records: Reviewed
--- NOTE | 2025-01-16 09:00 | PTCARENOTE ---
Rec'd pt at handoff. Tele- A-paced. Assessment completed as documented. Pt has no complaints pain/discomfort at this time. Plan of care reviewed w/ pt and verbalizes understanding. Pt aware of NPO status for cath today and possible ICD upgrade.
Currently in bed; call graves w/in reach.
--- NOTE | 2025-01-16 09:18 | W.PN.HOSP.TC ---
Addendum entered and electronically signed by Derek Steel MD 01/16/25 20:55:
Attending Addendum-
I saw and evaluated the patient. I reviewed the resident�s note and agree with findings and plan as documented in the resident�s note. Sub: complains of fatigue and bleeding from wrist. Very pleasant. Denies CP palps. Full 12 point ROS reviewed and
negative except as documented Exam: Vitals reviewed in chart GEN-NAD heart RRR lungs clear abd soft LE no edema right wrist band in place right hand delayed cap refil sensation intact
Plan:
# Nonsustained ventricular tachycardia
-pt with Biotronik pacemaker not ICD
-VT lasted in 20 seconds
-Patient was given amiodarone at the admission and now continued
-[facility]- 01/16- No ischemic nidus for ventricular tachycardia.
-ICD/FERMENTING CELLARS SUPERVISOR�D upgrade- 01/16
-cont new amiodarone 200 mg twice daily
-restart eliquis in am post procedure
# Hypercalcemia
-Need to follow with an Iso Coordinator OP
# Hypertension
-As needed blood pressure medications
# Hyperlipidemia
-Continue atorvastatin/zetia
# History of A-fib
-Continue Eliquis post procedure in am
- DC sotalol cont new amiodarone
CODE- DNR
DVTp-eliquis when able
Dispo DC to [facility] in am
Time spent coordinating care, review of plan of care with resident, personally reviewed records in EMR, med rec, consults, notes, labs, radiology, d/w nursing EP and IC� 55 mins
Original Note:
Today's Communication/Plan
-
Echocardiogram today, ICD/FERMENTING CELLARS SUPERVISOR-D upgrade.
Assessment / Plan
Assessment / Plan
#Nonsustained ventricular tachycardia, possibly secondary to QT prolongation from medication
- Biotronik pacemaker record shows run of VT lasting 20s. EKGs showing atrial paced rhythm w/ nonspecific ST changes
- Sotalol was held and amiodarone was given IV. Now on amiodarone 200 mg BID
- R heart cath no ischemic nidus for ventricular tachycardia. Plan for ICD/FERMENTING CELLARS SUPERVISOR-D upgrade
- Pending Echocardiogram
Has follow up scheduled with Cardiology 01/23/25.
#Hypercalcemia
- Serum calcium elevated 11.3, ionized ca 1.37, ALP 121, VIT D 63.6, PTH 65.4, mg 1.8, PTHrP pending
- Patient has persistent hypercalcemia on previous labs
- No personal history of cancer
- Will need to follow with an Iso Coordinator as OP for further workup and management
- Will c/t monitor
#Hypertension, Essential - Was on BID Sotalol at home, however currently holding. Pressures stable.
#Hyperlipidemia - Holding for now. On home Atorvastatin 40mg. Will need high dose/high intensity statin therapy on discharge with goal LDL <55
#History of A-fib - No afib during this admission. Currently on rate/rhythm control w/ Amiodarone as above. Held for procedure today. C/t hold for ICD placement
DVT PPx - As above
Diet - NPO for procedure
Code Status - DNR
Anticipated Discharge: Within 24 hours
Subjective/Interval History
-
Feeling well today, no acute complains, no events overnight. She has has had runs of bigemony and intermittent PVCs which she does not feel. No new runs of Vtach. Able to ambulate without shortness of breath, chest pain, palpitations.
Objective Data
-
Labs:
Laboratory Results
01/16/25
03:52
WBC 6.7
Hgb 12.4
Hct 36.7 L
Plt Count 158
Sodium 139
Potassium 4.0
Chloride 106
Carbon Dioxide 28
BUN 20 H
Creatinine 0.8
Glucose 93
Calcium 11.3 H
Total Bilirubin 0.8
AST 24
ALT 17
Alkaline Phosphatase 126
Vital Signs:
Vital Signs
Temp Pulse Resp BP Pulse Ox
98.3 F 63 20 143/76 100
01/16/25 07:11 01/16/25 07:30 01/16/25 07:11 01/16/25 07:11 01/16/25 07:11
I&O
01/15/25 01/16/25 01/17/25
06:59 06:59 06:59
Intake Total 240 / 240
Output Total 250 / 250
Balance -250 / -250 240 / 240
Review of Systems
-
History Source: Patient
Constitutional: Reports No Symptoms
Respiratory: Denies Cough or Trouble Breathing
Cardiac: Denies Chest Pain, Diaphoresis, Palpitations or Syncope
Abdomen/GI: Reports No Symptoms
Genitourinary: Reports No Symptoms
Musculoskeletal: Reports No Symptoms
Neuro: Reports No Symptoms
Physical Exam
-
General: Well Developed, Well Nourished, No Apparent Distress and Comfortable
HEENT: Normocephalic, Atraumatic, Moist Mucous Membranes, Anicteric, [place] Conjunctivae and PERRLA
Respiratory: Clear to Auscultation; Negative Wheezes, Rales or Rhonchi
Cardiac: Regular Rhythm, S1/S2 and Murmur (systolic murmur 3/5)
GI: Soft, Nontender, Nondistended and Normal Bowel Sounds
Genito-urinary: Deferred by me
Musculoskeletal: No Clubbing, No Cyanosis and No Edema
Skin: Warm, Dry and IV Access / Catheter Site (R radial artery access from cath. Non-tender. Distal sensation and neuromuscular function intact )
Neuro: Awake, Alert, Oriented and No Motor Deficits
Psych: Calm
--- NOTE | 2025-01-16 10:50 | ITS.CL.CATH ---
Press Manager - Catheterization
Cardiac Catheterization
Procedure Report:
CARDIAC CATHETERIZATION REPORT
Date of Procedure: 01/16/2025
Referring: Mickie Aldana M.D.
INDICATION: Ventricular tachycardia.
PROCEDURE:
1. Left heart catheterization
2. Coronary angiography.
A total of 26 minutes of procedural/moderate sedation was utilized. An independent medical authorization specialist was present to assist with and help manage the patient's level of consciousness and physiologic status.
ACCESS:
1. 6 Indian right right artery using a modified Seldinger technique delete.
CATHETERS:
1. 5 Indian JR4.
2. 5 Indian JL 3.5.
HEMODYNAMIC DATA
Weight (kg): 63.5
AO (s/d/x, mmHg): 146/86/112
LV (s/x mmHg): 146/10
LEFT VENTRICULOGRAPHY: Not performed.
CORONARY ANGIOGRAPHY
Dominance: Right.
Left Main: Normal size, bifurcating vessel. There is no coronary artery disease.
LAD: Normal size vessel giving rise to 2 significant diagonals. There are minor luminal irregularities throughout the LAD system.
Ramus: Congenitally absent.
Circumflex: Large size, nondominant vessel that is essentially a single large obtuse marginal supplying the majority of the lateral wall. There is a smooth, 20% tapering in the mid third of the obtuse marginal.
RCA: Normal size, dominant vessel. There are luminal irregularities in the proximal and mid RCA.
INTERVENTION(S)
None.
Closure Device: Vascular band.
Radiation (mGy): 282
DAP (cm2.Gy): 7.446
Fluoroscopy time (minutes): 2.2
CONCLUSIONS
1. Right dominant circulation with luminal irregularities in the RCA and a smooth, 20% tapering in the mid third of the obtuse marginal. No ischemic nidus for ventricular tachycardia.
2. Normal filling pressures (LVEDP = 10 mmHg at 63.5 kg).
RECOMMENDATIONS:
1. Expectant management after cardiac catheterization via right radial approach.
2. Limited weight bearing on the right wrist for one week.
3. Proceed with ICD/FISHER HOOP NET�D upgrade as discussed with electrophysiology.
4. Aggressive primary prevention with high-dose, high potency statin. Goal LDL <55.
5. Echocardiogram ordered and pending.
6. OMT/GDMT as hemodynamics will tolerate.
Copy to: Mickie Aldana M.D., Maxime Greene D.O.
Higinio Mcmullen DO, FACC, FACP
--- NOTE | 2025-01-16 14:39 | W.ICD.CONTRA ---
Post ICD/CORPORATE DIRECTOR TALENT ASSESSMENT-D
-
History of IA?: No
LV Function
Left ventricular function study result?: Ejection Fraction >/= 40%
ACEI/ARB/ARNI
Patient already on ACEI/ARB/ARNI: No
ACEI/ARB/ARNI Not Indicated: Left Ventricular EF >/= 40%
Beta-Armen
Patient already on Beta Armen: Yes
--- NOTE | 2025-01-16 15:08 | CM ---
called [facility]- pt is a medicare bed hold for skilled rehab. will need PT/OT notes to return. her husb lives there in LTC. she has a 2 story home with 2 steps to enter, her son lives there too. she uses a rollator.
[2025-01-16] MEDS: VANCOCIN 200 IV (15:21)
[2025-01-16] MEDS: AZACTAM 2000 MG IV (16:05)
--- NOTE | 2025-01-16 17:03 | ITS.CL.ICD ---
Courtroom Clerk - ICD
Implantable Cardioverter Defibrillator
Procedure Report:
Upgrade from dual chamber PPM to THERAPIST RESPIRATORY-D with ICD Placement:
Ms. Rosenthal is an 84 yrs old woman with atrial fibrillation (on sotalol and apixaban), Biotronik PPM � right shoulder (left handed), hypertension, dyslipidemia, and prior brain bleed in the setting of a fall who presented from [facility]
nursing facility after experiencing an episode of palpitations while performing physical therapy on a bicycle with sustained ventricular tachycardia. She was on low dose Sotalol and was switched to Amiodarone and underwent cardiac cath that showed
non obstructive CAD and she is recommended an ICD placement. She already has a dual chamber PPM for SSS and has RV lead in RV high septal side and is mostly paced. Given her high pacing need, will upgrade to THERAPIST RESPIRATORY-D with use of previous PPM lead as LV
pacing and multiple ventricular septal pacing. �
Indications: 100% RV paced rhythm with sustained ventricular tachycardia with NYHA class III symptoms.
Date of the Procedure: 01/16/2025
Pre-Operative Diagnosis: sustained ventricular tachycardia and pacemaker dependent
Post-Operative Diagnosis: sustained ventricular tachycardia and pacemaker dependent
Procedure Performed: UPGRADE to THERAPIST RESPIRATORY-D FROM DUAL CHAMBER PACEMAKER.
Performing Physician:
Mickie Aldana MD
Anesthesia:
See anesthesia records
Detailed Description of the Procedure:
The patient was identified using hospital identification and informed consent obtained for the procedure. The risks were explained to the patient and the family including, but not limited to: Bleeding, infection, arrhythmia, stroke,
vascular/cardiac/lung puncture, surgery, pacemaker dependency/device malfunction. All questions were answered.
A surgical pause was performed in accordance with hospital regulations. Anesthesia service provided sedation as reported separately. Antibiotics administered IV for risk of bacterial colonization. After obtaining informed and written consent, the
patient was brought to the electrophysiology laboratory.
The PPM was interrogated and was 100% paced with PPM dependency. The PPM was switched to DOO for the procedure.
A timeout was performed immediately before the procedure. The right chest was prepped from the nipple to the angle of the jaw with chlorhexidine, and draped following sterile technique in usual routine.�
A peripheral venogram was done that showed axillary vein occluded with collaterals. The decision was made to proceed with venoplasty.
Following infiltration with local anesthetic subcutaneously using 1% lidocaine / bupivacaine. The axillary vein was accessed using micropuncture but guidewire could not be crossed through the occluded section.
Axillary vein and Subclavian vein Venoplasty:
The subclavian vein was accessed beyond the occluded vein using a cook needle. The guidewire was placed to the SVC but the SVC to RA junction was also occluded and wire was not able to advanced into the RA.
Using gldewire the SVC was dialted and a long sheath was placed in the SVC. Using amplatz and glidewire the wire was advanced into the RA and the route was dilated gradually from 5Fr dilator to 9Fr long sheath.
�
ICD placement
The right ventricular defibrillator lead was advanced into the RV cavity and secured in RV apical septal position with an active fixation technique. There was excellent sensing, pacing, and impedance from the leads, with no diaphragmatic stimulation
at 10 V output.�Bovie cautery, antibiotics, and fluoroscopy were used.
The ICD lead was secured to the underlying fascia at the entry site using 2-0 Ethibond suture around the sleeves.
During pacing, QRS complex was favorable, with a narrow QRS configuration during BiV pacing. It was deemed ideal for biventricular pacing. No diaphragmatic stimulation was noted at maximal output pacing at any poles. The threshold was below 1V and
was deemed acceptable.
The guiding sheath was removed from the vein and then from the body without change in lead position, impedance, sensing, or capture. Short KS interval permitted nonadaptive THERAPIST RESPIRATORY pacing with BiV pacing. The lead was sutured to the underlying
pectoralis fascia with 2-0 Ethibond stitches.
The old PPM generator was accessed and the adhesions were removed with care to avoid damage to the leads. The PPM capsule was cut to access the generator. It was removed from the body. The Weitlaner retractor was placed in the incision and used as
access to skin for unipolar pacing.
The old RV high septal lead was deemed as LV lead and was placed into the new pulse generator and was paced. The old leads were individually removed and tested. The leads were attached to the pulse generator in standard configuration with acceptable
sensing and threshold parameters. The pocket was irrigated with antibiotic solution; the pocket was inspected with no active bleeding noted. The device and the leads were placed in the pocket.
A Tyrx antibiotics envelop was placed around the generator and the leads.
Deep subcutaneous tissues were closed with 3 layers of 2-0 VLoc sutures and the dermis was reopposed using a running 4-0 V loc subcuticular suture.
Sponge counts / sharp counts were appropriate.
Procedure End:
The procedure was tolerated well. Aquacel bandaged was applied.
A pressure dressing was applied.
Estimated Blood loss:
5 cc
Specimens Removed:
No cultures and no specimens were obtained. No intraoperative pathology was identified.
Urine output:
None
Packs / Drains/ Tubes:
None
Instrument / Sponge Count Correct:
Yes
Complications of the Procedure:
None
Condition of Patient at Time of Transfer:
Hemodynamically stable with no neurological or vascular compromise.
Device information:�
Generator: [employer]; Model: Acticor 7 HF-T DF4 IS-1 # [id number]; Serial # [id number]
����������� Implanted 01/16/25�
����������� Atrial Lead: Biotronik; Model: Solia S � [id number]; Serial # [id number]
����������������������� Measured data in the right atrium was sensing of 1.7 mV and, impedance of 482ohms and threshold of 0.6 V at 0.4ms�
����������������������� Implanted 03/05/2017
����������� RV ICD Lead: Biotronik; Model: Pamira S - [id number]; Serial # [id number]
����������������������� Measured data on the RV lead was sensing of 10 mV, impedance of 658 ohms and threshold of 0.3 V at 0.4ms�
����������� LV pacing lead: Valdemar Viroblock; Model: 7741-52; Serial # [id number]
����������������������� Measured data on the LV lead was impedance of 643 ohms and threshold of 1.0 V at 0.4ms.
PROGRAMMING PARAMETERS:�
Elvis parameter settings were DDD 60-130 �
����������� Paced AV interval: 130ms
����������� Sensed AV interval: 100 ms.
����������� Rate Adaptive A-V Interval: on
Tachy parameter settings:
����������� SVT discrimination: On
����������� AF/AFl: On
����������� SVT limit: 260 msec
����������� VT zone:
Slow VT: 150-182 bpmc - Monitor
����������������������� Fast VT: 182-222 bpm- ATP x3 then shock
����������������������� VF: >222 bpm - Shock� x8
�
Summary:
Successful upgrade from dual chamber to THERAPIST RESPIRATORY-D with placement of ICD lead and venoplasty.
Results/Recommendations:
-Please follow up CXR�
Instructions to be given to patient:�
- Please follow up with [facility] at [address] [place] [address] ([phone]) to get your wound checked in 2 weeks of your discharge.
- Do not wet incision site until after it is evaluated at cardiology clinic. No baths or showers until then. Sponge baths / showers are OK but dab dry the dressing after it is wet.�
- Allow 'steri strips' to fall off on their own�
- Do not lift right elbow above shoulder, particularly with sudden jerking movements, for 1 month�
- Do not lift anything weighing more than 5 pounds with the right arm for 1 month�
- If you notice any fevers, shortness of breath, lightheadedness, chest pain, or worsening swelling in the wound site, please contact the arrhythmia clinic, contact your plumbing drafter, or present to the hospital for evaluation.�
Mickie Aldana MD
Electrophysiology
--- NOTE | 2025-01-16 17:59 | PTCARENOTE ---
Rec'd pt from EP lab. R chest wall w/ steri strips and aquacel c/d/i. R arm immobilizer arm. EKG obtained. Pt has no complaints at this time. Tele- AV paced. HR 60s. Activity restrictions reviewed w/ pt and verbalizes understanding. Currently in
bed; call ely w/in reach.
--- NOTE | 2025-01-16 23:52 | PTCARENOTE ---
Pt. mostly AV paced in the 60's with come occasional V-pacing, other vitals stable. OOB & ambulatory with assist x 1. Right upper chest antibacterial dressing & right radial cath site dressing CDI with normal radial pulse, no hematoma assessed;
immobilizer in place. No complaints of pain. Pt. currently sleeping.
[2025-01-17] VITALS (8 sets, daily range): BP systolic 112–157; BP diastolic 71–96; PULSE 62–72; O2SAT 98–99; BMI 22.7
[2025-01-17] MEDS: TYLENOL 650 MG PO ×2 (03:17→09:02)
[2025-01-17 03:40] LABS: Hematocrit 38.6 % (37.0-47.0); Hemoglobin 13.2 g/dL (12.0-16.0); Mean Corp Hgb Conc. 34.2 g/dL (33.0-37.0); Mean Corpuscular Hgb 32.1 pg (27.0-31.0); Mean Corpuscular Volume 93.9 fL (81.0-99.0); Mean Platelet Volume 10.5 fL (7.4-10.4); Platelet Count 160 10^3/uL (130-400); Red Blood Cell Count 4.11 10^6/uL (4.20-5.40); Red Cell Dist. Width 13.2 % (11.5-14.5); White Blood Cell Count 8.6 10^3/uL (4.8-10.8)
[2025-01-17 04:04] LABS: Blood Urea Nitrogen 16 mg/dl (7-17); Calcium 11.4 mg/dl (8.4-10.2); Carbon Dioxide 25 mmol/L (22-30); Chloride 106 mmol/L (98-107); Estimated Creatinine Clearance 58 ml/min; Glucose 89 mg/dl (70-99); Potassium 4.1 mmol/L (3.5-5.1); Sodium 141 mmol/L (135-145); eGFR > 60.00
--- NOTE | 2025-01-17 07:23 | W.PN.HOSP.TC ---
Addendum entered and electronically signed by Derek Steel MD 01/17/25 22:56:
Attending Addendum-
I saw and evaluated the patient. I reviewed the resident�s note and agree with findings and plan as documented in the resident�s note. Sub: no further bleeding from wrist, states her right hand is tingling. . Very pleasant. 'Im ready to go.' Denies
CP palps. Full 12 point ROS reviewed and negative except as documented Exam: Vitals reviewed in chart GEN-NAD heart RRR lungs clear abd soft LE no edema right hand delayed cap refil sensation intact jaydon test good perfusion
Plan:
# Nonsustained ventricular tachycardia
-pt with Biotronik pacemaker not ICD
-VT lasted in 20 seconds
-Patient was given amiodarone at the admission and now continued
-[facility]- 01/16- No ischemic nidus for ventricular tachycardia.
-ICD/CAPACITOR PACK PRESS OPERATOR�D upgrade- 01/16
-cont new amiodarone 200 mg twice daily
-restart eliquis
# Hypercalcemia
-Need to follow with an Ld Teacher OP
# Hypertension
- cont coreg aldactone
# Hyperlipidemia
-Continue atorvastatin/zetia
# History of A-fib
-Continue Eliquis post procedure in am
- DC sotalol cont new amiodarone and coreg
CODE- DNR
DVTp-eliquis when able
Dispo DC to [facility]
Time spent coordinating care, DC planning, review of DC plan of care with resident, transition of care, review of records, med rec/scripts sent electronically, consults, notes, d/w consultants, nursing, family, and CM� 33 mins
Original Note:
Today's Communication/Plan
-
Discharge back to [facility] pending PT/OT clearance. F/u scheduled with [facility]
Assessment / Plan
Assessment / Plan
#Nonsustained ventricular tachycardia, possibly secondary to QT prolongation from medication
- Biotronik pacemaker record shows run of VT lasting 20s. EKGs showing atrial paced rhythm w/ nonspecific ST changes
- Sotalol was held and amiodarone was given IV. Now on amiodarone 200 mg BID
- R heart cath no ischemic nidus for ventricular tachycardia. Plan for ICD/CAPACITOR PACK PRESS OPERATOR-D upgrade
- Echo showing 60-65% EF, moderate AR, Mild/Mod TR. Normal PASP.
Has follow up scheduled with Cardiology 01/23/25. [employer] Dr. Hawk Falcon was seen within the last year.
#Hypercalcemia
- Serum calcium remains elevated (11.2, 11.3, 11.4), ionized ca 1.37, ALP 121, VIT D 63.6, PTH 65.4, mg 1.8, PTHrP pending
- Patient has persistent hypercalcemia on previous labs
- No personal history of cancer
- Will need to follow with an Ld Teacher as OP for further workup and management
- Will c/t monitor
#Hypertension, Essential - Was on BID Sotalol at home, however currently holding. Pressures stable.
#Hyperlipidemia - Holding for now. On home Atorvastatin 40mg. Will need high dose/high intensity statin therapy on discharge with goal LDL <55
#History of A-fib - No afib during this admission. Currently on rate/rhythm control w/ Amiodarone as above. Held for procedure today. C/t hold for ICD placement
DVT PPx - As above
Diet - NPO for procedure
Code Status - DNR
Anticipated Discharge: Today
Subjective/Interval History
-
Feeling well, no acute complaints. Able to ambulate to the bathroom without sob, cp. R arm is sore, but she has feeling and can move her fingers.
Objective Data
-
Labs:
Laboratory Results
01/17/25
03:12
WBC 8.6
Hgb 13.2
Hct 38.6
Plt Count 160
Sodium 141
Potassium 4.1
Chloride 106
Carbon Dioxide 25
BUN 16
Creatinine 0.7
Glucose 89
Calcium 11.4 H
Vital Signs:
Vital Signs
Temp Pulse Resp BP Pulse Ox
97.8 F 60 20 156/74 99
01/17/25 07:08 01/17/25 06:00 01/17/25 07:08 01/17/25 02:36 01/17/25 07:08
I&O
01/16/25 01/17/25 01/18/25
06:59 06:59 06:59
Intake Total 240 / 240 534 / 534
Output Total 400 / 400
Balance 240 / 240 134 / 134
Review of Systems
-
Constitutional: Reports No Symptoms
EENT: Reports No Symptoms Reported
Respiratory: Reports No Symptoms
Cardiac: Reports No Symptoms
Abdomen/GI: Reports No Symptoms
Breast: Reports No Symptoms
Genitourinary: Reports No Symptoms
Musculoskeletal: Reports Muscle Stiffness
Skin: Reports No Symptoms
Neuro: Reports No Symptoms
Hematologic / Lymphatic: Reports No Symptoms
Physical Exam
-
General: Well Developed, Well Nourished, No Apparent Distress, Comfortable and Conversant
HEENT: Normocephalic, Atraumatic, Moist Mucous Membranes, Anicteric, [place] Conjunctivae and PERRLA
Respiratory: Clear to Auscultation; Negative Wheezes, Rales or Rhonchi
Cardiac: Regular Rhythm and S1/S2; Negative Murmur or Rub
Breast: Deferred by me
GI: Soft, Nontender, Nondistended and Normal Bowel Sounds
Rectal: Deferred by Provider
Genito-urinary: Deferred by me
Musculoskeletal: No Clubbing, No Cyanosis and No Edema
Skin: Warm, Dry and IV Access / Catheter Site
Neuro: Awake, Alert and Oriented
Psych: Calm
--- NOTE | 2025-01-17 07:58 | W.PN.CD ---
Today's Communication / Plan
-
- Starting Coreg 6.25 mg BID
- OK to resume Aldactone
- Discontinue Sotalol
- Amiodarone 200 mg BID for 3 months then 200 mg QD
- Stable for discharge
- Follow up in device clinci in 1 week then routine follow up with Dr. Falcno at [facility]
Impression / Plan
-
Impression/Plan: 84F with atrial fibrillation (on sotalol and apixaban), Biotronik PPM, hypertension, dyslipidemia, and prior brain bleed in the setting of a fall who presented from [facility] after experiencing an episode of
palpitations while performing physical therapy on a bicycle. PPM interrogation shows 20 seconds of VT.
#Ventricular tachycardia
-Acute, diagnosis is a threat to life.
-Symptoms of palpitations, no syncope/presyncope, no electrolyte abnormalities.
-Sotalol stopped, amiodarone 150 mg IV given in ER, followed by 200 mg PO BID.
- Will sart Coreg now - for VT and HTN
-Cardiac catheterization 01/16/25 - non obstructive CAD
- s/p ICD/VISITOR SERVICES ASSOCIATE-D upgrade on 01/16/25
- Right subclavian and SVC was occluded and needed venoplasty to open and was able to place ICD lead in the apical septum.
#Biotronik ICD in situ
-upgraded from dual chamber to VISITOR SERVICES ASSOCIATE-D
-Right-sided device.
-device is NOT MRI compatible due to presence of [employer] pacing wire (Mismatch with Biotronik - both are individually MRI compatible)
- CXR is stable
- ICD is working well.
#Atrial fibrillation
-Presumably paroxysmal.
-Currently in sinus vs. A-paced.
-Rate/rhythm control with amiodarone.
-[id number]: Score at least 4 (HTN, age 75 or more, female gender)
-Oral Anticoagulation: Apixaban, restart today.
#Hypertension
-Chronic, stable.
-Off Sotalol now
- Will start Coreg 6.25 mg BID and OK to resume Aldactone
#Hypercalcemia
-Reportedly chronic.
-Ca 11.3, PTH 65.4. PTHRP pending.
-Dx is likely primary hyperparathyroidism, but it is unclear if she would want surgical treatment.
#iRBBB
-Chronicity unknown, not present on 2021 EKG.
#Dyslipidemia
-Probably chronic.
#Prior brain bleed
-Secondary to a fall by report.
-Unclear severity and etiology (SAH vs. epidural hematoma vs. subdural hematoma).
-Currently tolerating anticoagulation.
Outpatient drier tender: Dr. Hawk Falcon
Subjective/Interval History:
No further VT on monitor.
BP remains mildly elevated (140's).
She feels well.
Physical Exam
Vital Signs/Labs
Vital Signs
Temp Pulse Resp BP Pulse Ox
97.8 F 60 20 156/74 99
01/17/25 07:08 01/17/25 06:00 01/17/25 07:08 01/17/25 02:36 01/17/25 07:08
01/16/25 01/17/25 01/18/25
06:59 06:59 06:59
Actual Weight 65.4 kg 65.8 kg
01/17/25 03:12
01/17/25 03:12
Magnesium 1.8 mg/dl (1.6-2.3) 01/15/25 05:08
Physical Exam
Constitutional: No acute distress and Comfortable
EENT: Anicteric and Moist mucous membranes
Cardiovascular: Rhythm & rate is regular, Pedal edema is absent and JVD pressure is normal
Respiratory: Respiratory effort normal, Lungs clear to auscul. and Wheeze Absent
GI: Soft, Non tender and Normal bowel sounds
Neuro/Psych: Alert, Oriented and AO x 3
Other: Cardiac Device Site
Data Reviewed
-
Date of Service: January 17, 2025
Medical Decision Making: Reviewed Test Results, Test Interpretation and Review of Case with other Provider
EKG: Tracing Personally Visualized and interpreted
Echo: Report Reviewed by me
X-Ray/CT/US/MRI/NUC/PET: Image Personally Visualized and interpreted
Labs: Labs Reviewed by me
Old Records: Reviewed
[2025-01-17] MEDS: PACERONE 200 MG PO (08:54)
[2025-01-17] MEDS: COREG 6.25 MG PO (08:54)
[2025-01-17] MEDS: COLACE 100 MG PO (08:55)
--- NOTE | 2025-01-17 18:15 | W.DCSUMMARY ---
Addendum entered and electronically signed by Derek Steel MD 01/17/25 22:57:
Read, reviewed, and agree. See same day progress note for additional details.
Hernando Steel MD
Original Note:
Documented by User: Malachi Gonzalez MD, Resident 01/17/25 18:34
Discharge Summary
Discharge Data
Date of Admission: 01/15/25
Date of Discharge: 01/17/25
Total time spent discharging patient (in min): >30m
-
Pending Results: Yes
Additional Pending Results:
PTHrP
Hospital Course
Discharging Physician : Dr. Malachi Gonzalez, Dr. Derek Steel
Disposition : [facility]
Primary care physician : Maxime Greene
Principal Discharge diagnosis : Ventricular Tachycardia, Upgrade of ICD in Situ, Hypercalcemia
Chronic Discharge diagnosis : Atrial Fibrillation, Hypertension, RBBB, Dyslipidemia
Hospital Course :
Dennise is a pleasant 84 year old lady who was brought to [facility] from [facility] for symptoms of weakness and palpitations. Interrogation of pacemaker showed a 20 second run of Vtach. She was given IV Amiodarone on admission was eventually
transitioned to oral. She received a left heart cath which demonstrated no nidus for ventricular tachycardia. She was subsequently upgraded to ANGLE SHEAR OPERATOR-D and tolerated the procedure well. During her admission her Aldactone was held. Echocardiogram was
done which showed EF of 60-65% (full conclusion below). She was evaluated by PT/OT prior to discharge. Ultimately, she was given a follow up appointment with [facility] and discharged back to [facility] on Aldactone, on new dose
Coreg, Amiodarone; her sotalol was discontinued.
Throughout admission she remained with asymptomatic hypercalcemia. PTH was done which was within normal limits. PTHrP was sent however it is still pending at time of discharge. She was not on vitamin D or calcium supplements. Labs as far back as
2021 in our system demonstrated hypercalcemia. Patient was made aware and given referral for Endocrinology as outpatient.
All other chronic discharge diagnoses remained stable throughout admission unless otherwise mentioned above.
Important imaging findings :
CR Chest Single View:
No acute cardiopulmonary process.
Echocardiogram:
CONCLUSIONS
Normal biventricular size and systolic function without regional wall motion
abnormality. Estimated LVEF 60-65%.
Aortic sclerosis without stenosis. Moderate aortic regurgitation.
Mild/moderate tricuspid regurgitation. Normal PASP.
Procedure findings :
PROCEDURE:
1. Left heart catheterization
2. Coronary angiography.
1. Right dominant circulation with luminal irregularities in the RCA and a smooth, 20% tapering in the mid third of the obtuse marginal. No ischemic nidus for ventricular tachycardia.
2. Normal filling pressures (LVEDP = 10 mmHg at 63.5 kg).
Discharge Plan
-
Patient Disposition: [facility]/SNF
Discharge Diagnosis/Procedures: Cardiac catheterization, ICD upgrade with new RV Lead
Diet: Low Cholesterol
Driving Restrictions: Must be cleared by cardiology to resume driving
Stand Alone Forms: DC Instructions- Cath/EP Lab, DC Inst - Implanted Device
Referrals:
[facility] [Provider Group] - 01/23/25 11:00 am (Post device incision check appointment with JERSON Dorantes)
Erika Fan MD [Consulting Staff] - in two to four weeks
Maxime Greene DO [Family Provider] -
Hawk Falcon MD [Non-Admitting Privileges] - in two to four weeks (Cardiology followup)
Additional Discharge Medication Instructions: Take Amiodarone 200mg TWICE per day for 90 days, then switch to Amiodarone 200mg ONCE per day, or as adjusted by Cardiology in subsequent visits.
Prescriptions:
New
carvedilol 6.25 mg Tablet
6.25 mg PO BID 90 Days Qty: 180 3RF
amiodarone 200 mg Tablet
200 mg PO BID 90 Days Qty: 180 0RF
Continued
atorvastatin 40 MG tablet
40 mg PO DAILY
spironolactone 25 MG tablet
12.5 mg PO DAILY
ezetimibe 10 MG tablet
10 mg PO DAILY
acetaminophen 325 MG tablet
500 mg PO Q8
bisacodyl [OneLAX Bisacodyl] 10 MG suppository
10 mg TN DAILY PRN (Reason: if mom ineffective)
Enema 135 ML enema
118 ml TN DAILY PRN (Reason: if dulcolax ineffective)
magnesium hydroxide 30 ML suspension
30 ml PO DAILYPRN PRN (Reason: if no bm x 3 days)
tramadol 50 mg Tablet
50 mg PO BID PRN (Reason: severe pain)
celecoxib [Celebrex] 100 mg Capsule
100 mg PO DAILY
Eliquis 5 mg Tablet
5 mg PO BID
docusate sodium [Colace] 100 mg Capsule
100 mg PO QPM
polyethylene glycol 3350 17 gram Powder In Packet
17 g PO DAILY PRN (Reason: constipation)
Discontinued
sotalol 80 MG tablet
40 mg PO BID
Discharge Orders:
Discharge Patient (As Directed); Ordered 01/17/25
Ordered By: Malachi Gonzalez
Care Plan Goals
Care Plan Goals:
Problem: Readiness for enhanced knowledge related to diagnosis and treatment plan
Goal: Understand your diagnosis and treatment plan needs, including medications if applicable.
Instructions: Know your diagnosis, underlying causes and treatment plan options, including medications if applicable. Consult with your health care team to learn about your diagnosis and treatment plan, including medications if applicable.
Discharge Date and Time
Discharge Date/Time: 01/17/25 15:56
Print Language: MALIAN

Documented by User: Derek Steel MD 01/17/25 22:52
Discharge Summary
Discharge Data
Date of Admission: 01/15/25
Date of Discharge: 01/17/25
Discharge Plan
-
Patient Disposition: [facility]/SNF
Discharge Diagnosis/Procedures: Cardiac catheterization, ICD upgrade with new RV Lead
Diet: Low Cholesterol
Driving Restrictions: Must be cleared by cardiology to resume driving
Stand Alone Forms: DC Instructions- Cath/EP Lab, DC Inst - Implanted Device
Referrals:
[facility] [Provider Group] - 01/23/25 11:00 am (Post device incision check appointment with JERSON Dorantes)
Erika Fan MD [Consulting Staff] - in two to four weeks
Maxime Greene DO [Family Provider] -
Hawk Falcon MD [Non-Admitting Privileges] - in two to four weeks (Cardiology followup)
Additional Discharge Medication Instructions: Take Amiodarone 200mg TWICE per day for 90 days, then switch to Amiodarone 200mg ONCE per day, or as adjusted by Cardiology in subsequent visits.
Prescriptions:
New
carvedilol 6.25 mg Tablet
6.25 mg PO BID 90 Days Qty: 180 3RF
amiodarone 200 mg Tablet
200 mg PO BID 90 Days Qty: 180 0RF
Continued
atorvastatin 40 MG tablet
40 mg PO DAILY
spironolactone 25 MG tablet
12.5 mg PO DAILY
ezetimibe 10 MG tablet
10 mg PO DAILY
acetaminophen 325 MG tablet
500 mg PO Q8
bisacodyl [OneLAX Bisacodyl] 10 MG suppository
10 mg TN DAILY PRN (Reason: if mom ineffective)
Enema 135 ML enema
118 ml TN DAILY PRN (Reason: if dulcolax ineffective)
magnesium hydroxide 30 ML suspension
30 ml PO DAILYPRN PRN (Reason: if no bm x 3 days)
tramadol 50 mg Tablet
50 mg PO BID PRN (Reason: severe pain)
celecoxib [Celebrex] 100 mg Capsule
100 mg PO DAILY
Eliquis 5 mg Tablet
5 mg PO BID
docusate sodium [Colace] 100 mg Capsule
100 mg PO QPM
polyethylene glycol 3350 17 gram Powder In Packet
17 g PO DAILY PRN (Reason: constipation)
Discontinued
sotalol 80 MG tablet
40 mg PO BID
Discharge Orders:
Discharge Patient (As Directed); Ordered 01/17/25
Ordered By: Malachi Gonzalez
Care Plan Goals
Care Plan Goals:
Problem: Readiness for enhanced knowledge related to diagnosis and treatment plan
Goal: Understand your diagnosis and treatment plan needs, including medications if applicable.
Instructions: Know your diagnosis, underlying causes and treatment plan options, including medications if applicable. Consult with your health care team to learn about your diagnosis and treatment plan, including medications if applicable.
Discharge Date and Time
Discharge Date/Time: 01/17/25 15:56
Print Language: MALIAN
== END 2025-01-17 15:56 | DRG 277 ==
LOC: IVU 10:22
PROVIDERS: Emergency Medicine; Hospitalist; Internal Medicine Cardiovascular Disease; Nurse Practitioner; Student in an Organized Health Care Education/Training Program; ADMITTING PHYSICIAN Internal Medicine; ATTENDING PHYSICIAN Family Medicine; CONSULT PHYSICIAN Internal Medicine Cardiovascular Disease; EMERGENCY PHYSICIAN Emergency Medicine; FAMILY PHYSICIAN Student in an Organized Health Care Education/Training Program
PROC: 4B02XSZ Measurement of Cardiac Pacemaker, External Approach (ICD-10-PCS; 2025-01-13)
PROC: B51M1ZZ Fluoroscopy of Right Upper Extremity Veins using Low Osmolar Contrast (ICD-10-PCS; 2025-01-16)
PROC: B5161ZZ Fluoroscopy of Right Subclavian Vein using Low Osmolar Contrast (ICD-10-PCS; 2025-01-16)
PROC: 3E0102A Introduction of Anti-Infective Envelope into Subcutaneous Tissue, Open Approach (ICD-10-PCS; 2025-01-16)
PROC: 02PA3MZ Removal of Cardiac Lead from Heart, Percutaneous Approach (ICD-10-PCS; 2025-01-16)
PROC: 0JPT0PZ Removal of Cardiac Rhythm Related Device from Trunk Subcutaneous Tissue and Fascia, Open Approach (ICD-10-PCS; 2025-01-16)
PROC: 02HL3KZ Insertion of Defibrillator Lead into Left Ventricle, Percutaneous Approach (ICD-10-PCS; 2025-01-16)
PROC: 02HK3KZ Insertion of Defibrillator Lead into Right Ventricle, Percutaneous Approach (ICD-10-PCS; 2025-01-16)
PROC: 4A023N7 Measurement of Cardiac Sampling and Pressure, Left Heart, Percutaneous Approach (ICD-10-PCS; 2025-01-16)
PROC: B2111ZZ Fluoroscopy of Multiple Coronary Arteries using Low Osmolar Contrast (ICD-10-PCS; 2025-01-16)
PROC: 0JH609Z Insertion of Cardiac Resynchronization Defibrillator Pulse Generator into Chest Subcutaneous Tissue and Fascia, Open Approach (ICD-10-PCS; 2025-01-16)
PROC: 02H63KZ Insertion of Defibrillator Lead into Right Atrium, Percutaneous Approach (ICD-10-PCS; 2025-01-16)
DX: I47.29 Other ventricular tachycardia (principal); E78.00 Pure hypercholesterolemia, unspecified; I48.0 Paroxysmal atrial fibrillation; I10 Essential (primary) hypertension; E21.0 Primary hyperparathyroidism; I45.10 Unspecified right bundle-branch block; I25.10 Atherosclerotic heart disease of native coronary artery without angina pectoris; I35.1 Nonrheumatic aortic (valve) insufficiency; I70.0 Atherosclerosis of aorta; I07.1 Rheumatic tricuspid insufficiency; Z66 Do not resuscitate; Z95.0 Presence of cardiac pacemaker; Z82.49 Family history of ischemic heart disease and other diseases of the circulatory system; Z90.49 Acquired absence of other specified parts of digestive tract; Z79.01 Long term (current) use of anticoagulants; Z88.0 Allergy status to penicillin; Z88.5 Allergy status to narcotic agent; Z87.820 Personal history of traumatic brain injury
CPT/HCPCS: 33249; 71045; 80048; 80053; 82306; 82330; 83519; 83735; 83970; 84443; 84484; 85025; 85027; 87070; 93005; 93306; 93458; 96361; 96374; 96375; 97162; 97166; 99152; 99153; 99285; C1769; C1777; C1882; C1892; C1894; Q9967

== ENCOUNTER 2025-02-03 10:26 | Day surgery (SDC) | payer MEDICARE, MEDICAID, SELFPAY ==
[2025-02-03] VITALS (13 sets, daily range): BP systolic 119–150; BP diastolic 61–81; BMI 22.7
[2025-02-03] MEDS: VANCOCIN 200 IV (12:19)
[2025-02-03] MEDS: AZACTAM 2000 MG IV (13:11)
--- NOTE | 2025-02-03 14:16 | ITS.CL.ICD ---
Director Script - ICD
Implantable Cardioverter Defibrillator
Procedure Report:
Pocket Revision for Bi-Ventricular Implantable Cardioverter Defibrillator:
Ms. Rosenthal is an 84 yrs old woman with atrial fibrillation (on sotalol and apixaban), s/p MANAGER ANIMATION-D upgrade on 01/16/25 from Biotronik PPM � right shoulder (left handed), hypertension, dyslipidemia, and prior brain bleed in the setting of a fall who
presented from [facility] after experiencing an episode of palpitations while performing physical therapy on a bicycle with sustained ventricular tachycardia on Amiodarone and underwent cardiac cath that showed non
obstructive CAD. Given her high pacing need, she underwent upgrade to MANAGER ANIMATION-D with use of previous PPM lead as LV pacing and multiple ventricular septal pacing. Patient was noted to have small hematoma in the pocket with skin discoloration and Eliquis
was restarted. Over the next couple of days patient also noted to have more swelling and was advised for pocket revision.
Indications: Pocket hematoma
Date of the Procedure: 02/03/2025
Pre-Operative Diagnosis: Ventricular tachycardia with pocket hematoma to the ICD
Post-Operative Diagnosis: Ventricular tachycardia with pocket hematoma to the ICD
Procedure Performed: Pocket revision, hematoma evacuation and washout of the pocket
Performing Physician:
Mickie Aldana MD
Anesthesia:
See anesthesia records
Pre-operative antibiotics:
Vanco 1gm IV
Detailed Description of the Procedure:
The patient was identified using hospital identification and informed consent obtained for the procedure. The risks were explained including, but not limited to: Bleeding, infection, arrhythmia, stroke, vascular/cardiac/lung puncture, surgery,
pacemaker dependency/device malfunction. All questions were answered.
The patient was brought to the electrophysiology laboratory in stable condition in fasting state. Continuous electrocardiographic and hemodynamic monitoring was initiated. The initial rhythm was BiV paced.
The procedure site was meticulously prepared with surgical scrub and allowed to dry with no pooling. Sterile draping was applied to cover the procedure site. The image intensifier was draped with sterile bag and positioned over the patient.
The right infraclavicular region was prepped and draped in the usual sterile fashion. Local anesthesia was administered subcutaneously using 1% lidocaine / Bupivacaine. Using the prior incision, the skin was incised again and the debris and the
prior sutures were removed. �Patient skin was healing adequately. There was old dark blood in the pocket in the form of clots. The pocket was cleaned thoroughly. All the blood clots and old blood was removed.� There was no sign of pus or infection.
The old sutures were removed from the skin.�
There was excellent sensing, pacing, and impedance from the leads, unchanged from the pre-op testing.
The wound was irrigated thoroughly with antibiotic solution.
A brand new Tyrx pouch was placed around the pocket and the leads. An An
The pocket was closed in 3 layers using 2-0 VLoc sutures and two layers of 4-0 V loc sutures. Steri-Strips and a bandage were applied externally.�
Procedure End:
The procedure was tolerated well. A bandage was applied to the incision area. Pressure dressing was placed.
Estimated Blood loss:
5 cc
Specimens Removed:
No cultures and no specimens were obtained. No intraoperative pathology was identified.
Urine output:
None
Packs / Drains/ Tubes:
None
Instrument / Sponge Count Correct:
Yes
Complications of the Procedure:
None
Condition of Patient at Time of Transfer:
Hemodynamically stable with no neurological or vascular compromise.
Device information:
����������� Generator: ResolutionTuberoniKuponjo; Model: Acticor 7 HF-T DF4 IS-1 # [id number]; Serial # [id number]
����������� Implanted 01/16/25
����������� Atrial Lead: Biotronik; Model: Solia S � [id number]; Serial # [id number]
����������������������� Measured data in the right atrium was sensing of 1.7 mV and, impedance of 482ohms and threshold of 0.6 V at 0.4ms
����������������������� Implanted 03/05/2017
����������� RV ICD Lead: Biotronik; Model: Pamira S - [id number]; Serial # [id number]
����������������������� Measured data on the RV lead was sensing of 10 mV, impedance of 658 ohms and threshold of 0.3 V at 0.4ms
����������������������������������� Implanted 01/16/2025
����������� LV pacing lead: Valdemar Gonzalez; Model: 7741-52; Serial # [id number]
�������� ���������������Measured data on the LV lead was impedance of 643 ohms and threshold of 1.0 V at 0.4ms.
����������� ����������������������� Implanted 03/05/2017
PROGRAMMING PARAMETERS:
Elvis parameter settings were DDD 60-130�
����������� Paced AV interval: 130ms
����������� Sensed AV interval: 100 ms.
����������� Rate Adaptive A-V Interval: on
Tachy parameter settings:
����������� SVT discrimination: On
����������� AF/AFl: On
����������� SVT limit: 260 msec
����������� VT zone:
����������������������������������� Slow VT: 150-182 bpmc - Monitor
����������������������������������� Fast VT: 182-222 bpm- ATP x3 then shock
����������������������������������� VF: >222 bpm - Shock� x8
Summary:
Successful pocket revision, cleanup and washout of the previous pocket
Results/Recommendations:
1. Please provide patient with adequate pain control�
2. Hold Eliquis / Celebrex for 7 more days
3. Continue Clindamycin for 5 more days.
Instructions to be given to patient:�
- Please follow up with [facility] at [address] [place] [address] ([phone]) to get your wound checked within 14 days of your discharge.
- Do not wet incision site until after it is evaluated at cardiology clinic. No showers until then. Sponge baths are OK.�
- Allow 'steri strips' to fall off on their own�
- Do not lift right elbow above shoulder, particularly with sudden jerking movements, for 1 month�
- Do not lift anything weighing more than 5 pounds with the right arm for 1 month�
- If you notice any fevers, shortness of breath, lightheadedness, chest pain, or worsening swelling in the wound site, please contact the arrhythmia clinic, contact your district agent, or present to the hospital for evaluation.�
Mickie Aldana MD
Electrophysiology
--- NOTE | 2025-02-03 16:34 | CM ---
CM following for DC planning needs.
Met w/ patient at bedside to complete initial assessment.
Pt. admitted form [facility]. I contacted [facility], patient is a LTC resident/ bed hold.
Pt. reports that she has been there 'awhile'. She is ambulatory with use of a RW or rollator. Wheelchair in the room, which is patient's own for transport.
She is anticipating return there tomorrow and states that her son will drive her back.
Plan- Return to [facility] LTC
RN report# [phone]
[2025-02-03] MEDS: ZETIA 10 MG PO (17:33)
[2025-02-03] MEDS: LIPITOR 40 MG PO (17:33)
[2025-02-03] MEDS: COLACE 100 MG PO (17:33)
[2025-02-03] MEDS: ULTRAM 50 MG PO (17:33)
--- NOTE | 2025-02-03 19:24 | PTCARENOTE ---
Pt received from recovery area post pacer pocket revision and evacuation of hematoma, dressing on right anterior chest covered with pressure dressing, pt has extensive bruising on right lateral chest, flank and hip. Pt given tramadol with good pain
relief. Pt walked with her walker with supervision only, voiding without difficulty. Telemetry shows AV paced rhythm. Pt placed on fall precautions, she understands and is calling appropriately for help. Plan to return to [facility] on
02/04/25.
[2025-02-03] MEDS: CLEOCIN 300 MG PO (20:51)
[2025-02-03] MEDS: COREG 6.25 MG PO (20:51)
[2025-02-03] MEDS: BUSPAR 5 MG PO (20:51)
[2025-02-03] MEDS: PACERONE 200 MG PO (20:52)
--- NOTE | 2025-02-03 22:11 | PTCARENOTE ---
Received pt @ change of shift. AAOx3. VSS. Right chest wall with pressure dressing intact. Very ecchymotic. Pt denies pain @ this time. Discussed plan of care for evening. Pt verbalizes understanding. Call graves within reach.
[2025-02-04 03:41] VITALS: BP 120/63
[2025-02-04 03:42] VITALS: BP 120/63
[2025-02-04 04:32] LABS: Hematocrit 29.9 % (37.0-47.0); Hemoglobin 10.2 g/dL (12.0-16.0); Mean Corp Hgb Conc. 34.1 g/dL (33.0-37.0); Mean Corpuscular Hgb 32.8 pg (27.0-31.0); Mean Corpuscular Volume 96.1 fL (81.0-99.0); Mean Platelet Volume 10.3 fL (7.4-10.4); Platelet Count 159 10^3/uL (130-400); Red Blood Cell Count 3.11 10^6/uL (4.20-5.40); Red Cell Dist. Width 14.2 % (11.5-14.5); White Blood Cell Count 6.1 10^3/uL (4.8-10.8)
[2025-02-04 05:01] LABS: Blood Urea Nitrogen 21 mg/dl (7-17); Calcium 10.4 mg/dl (8.4-10.2); Carbon Dioxide 26 mmol/L (22-30); Chloride 107 mmol/L (98-107); Estimated Creatinine Clearance 50 ml/min; Glucose 85 mg/dl (70-99); Magnesium 1.7 mg/dl (1.6-2.3); Potassium 4.5 mmol/L (3.5-5.1); Sodium 137 mmol/L (135-145); eGFR > 60.00
[2025-02-04 07:46] VITALS: BP 112/84
[2025-02-04] MEDS: TYLENOL 650 MG PO (07:49)
[2025-02-04] MEDS: COREG 6.25 MG PO (07:50)
[2025-02-04] MEDS: PACERONE 200 MG PO (07:50)
[2025-02-04] MEDS: ALDACTONE 12.5 MG PO (07:50)
[2025-02-04] MEDS: CLEOCIN 300 MG PO (07:50)
[2025-02-04] MEDS: BUSPAR 5 MG PO (07:51)
--- NOTE | 2025-02-04 08:48 | PTCARENOTE ---
Assumed care. Patient using call graves for assistance, walked to the bathroom with rolling walker, now in chair. Right chest Aquacel and pressure dressing intact. Bruising right chest to right flank unchanged. Tylenol given for chest discomfort, call
graves in reach
--- NOTE | 2025-02-04 09:34 | W.PN.CD ---
Today's Communication / Plan
-
- No Eliquis and Celebrex for one week
- Follow up in a week
- Clindamycin for 5 more days.
Impression / Plan
-
84F with atrial fibrillation (on sotalol and apixaban), Biotronik PPM, hypertension, dyslipidemia, and prior brain bleed in the setting of a fall who presented from [facility] after experiencing an episode of palpitations
while performing physical therapy on a bicycle s/p SOLAR DESIGNER-D upgrade with pocket hematoma.
ICD Pocket hematoma
-Pocket hematoma evacuated
-OOzing without any clear bleeder
-thrombin injected in the pocket
-TYRX antibiotics pouch installed.
-Pressure dressing placed. Off Eliquis and Celebrex.
-Clindamycin for 5 more days
#Ventricular tachycardia
-s/p SOLAR DESIGNER-D upgrade
-Sotalol stopped, amiodarone 150 mg IV given in ER, followed by 200 mg PO BID.
- Coreg now - for VT and HTN
- Cardiac catheterization 01/16/25 - non obstructive CAD
- s/p ICD/SOLAR DESIGNER-D upgrade on 01/16/25
- Right subclavian and SVC was occluded and needed venoplasty to open and was able to place ICD lead in the apical septum.
#Biotronik ICD in situ
- upgraded from dual chamber to SOLAR DESIGNER-D
- Right-sided device.
- device is NOT MRI compatible due to presence of [employer] pacing wire (Mismatch with Biotronik - both are individually MRI compatible)
- CXR is stable
- ICD is working well.
#Atrial fibrillation
-Presumably paroxysmal.
-Currently in sinus vs. A-paced.
-Rate/rhythm control with amiodarone.
-[id number]: Score at least 4 (HTN, age 75 or more, female gender)
-Oral Anticoagulation: Apixaban, restart today.
#Hypertension
-Chronic, stable.
-Off Sotalol now
- Will start Coreg 6.25 mg BID and OK to resume Aldactone
#Hypercalcemia
-Reportedly chronic.
-Ca 11.3, PTH 65.4. PTHRP pending.
-Dx is likely primary hyperparathyroidism, but it is unclear if she would want surgical treatment.
#iRBBB
-Chronicity unknown, not present on 2021 EKG.
#Dyslipidemia
-Probably chronic.
#Prior brain bleed
-Secondary to a fall by report.
-Unclear severity and etiology (SAH vs. epidural hematoma vs. subdural hematoma).
-Currently tolerating anticoagulation.
Outpatient neurology nurse: Dr. Hawk Falcon
Subjective/Interval History:
Pressure dressing removed. No active complaints
Physical Exam
Vital Signs/Labs
Vital Signs
Temp Pulse Resp BP Pulse Ox
98.4 F 60 16 112/84 98
02/04/25 07:46 02/04/25 07:46 02/04/25 07:46 02/04/25 07:46 02/04/25 07:46
02/03/25 02/04/25 02/05/25
06:59 06:59 06:59
Actual Weight 65.771 kg
02/04/25 03:51
02/04/25 03:51
Magnesium 1.7 mg/dl (1.6-2.3) 02/04/25 03:51
Physical Exam
Constitutional: No acute distress and Comfortable
EENT: Anicteric and Moist mucous membranes
Cardiovascular: Rhythm & rate is regular, Pedal edema is absent and JVD pressure is normal
Respiratory: Respiratory effort normal, Lungs clear to auscul. and Wheeze Absent
GI: Soft, Non tender and Normal bowel sounds
Neuro/Psych: Alert, Oriented, AO x 3 and Motor deficits absent
Other: Cardiac Device Site
Data Reviewed
-
Date of Service: February 04, 2025
Medical Decision Making: Reviewed Test Results, Test Interpretation and Review of Case with other Provider
EKG: Tracing Personally Visualized and interpreted
Labs: Labs Reviewed by me
Old Records: Reviewed
[2025-02-04 11:01] VITALS: BP 100/66
--- NOTE | 2025-02-04 11:21 | PTCARENOTE ---
Report called to Kesha ARTHUR from [facility].
--- NOTE | 2025-02-04 12:13 | PTCARENOTE ---
Patient escorted to [facility] and assisted into her son's car. Report called earlier. [facility] and faxed to number provided
--- NOTE | 2025-02-07 07:16 | W.DS.TRANS ---
DC Summary - Environmental Remediation Engineer
-
Discharge Instructions:
Sleep Apnea Risk Intermediate
Discharge Diagnosis/Procedures Pacemaker pocket revision
Diet Low Cholesterol,2 Gram Sodium
Driving Restrictions No driving for 24 hours
Bathing Restrictions OK to Shower
Instructions:
Stand-Alone Forms: DC Inst - Implanted Device
Changes to Home Medications: Yes
Discharge Medications:
DC Medications w/original date entered in import2
atorvastatin 40 mg tablet 40 mg PO DAILY High cholesterol 02/07/22
ezetimibe 10 mg tablet 10 mg PO DAILY High cholesterol 02/07/22
spironolactone 25 mg tablet 12.5 mg PO DAILY Fluid retention/Swelling 02/07/22
acetaminophen 325 mg tablet 500 mg PO Q8 Pain 04/09/22
bisacodyl 10 mg rectal suppository (OneLAX Bisacodyl) 10 mg MA DAILY PRN if mom ineffective 04/09/22
magnesium hydroxide 400 mg/5 mL oral suspension 30 ml PO DAILYPRN PRN if no bm x 3 days 04/09/22
sodium phosphates 19 gram-7 gram/118 mL enema (Enema) 118 ml MA DAILY PRN if dulcolax ineffective 04/09/22
celecoxib 100 mg capsule (Celebrex) 100 mg PO DAILY Anti-Inflammatory 01/14/25
docusate sodium 100 mg capsule (Colace) 100 mg PO QPM Constipation 01/14/25
polyethylene glycol 3350 17 gram oral powder packet 17 g PO DAILY PRN constipation 01/14/25
tramadol 50 mg tablet 50 mg PO BID PRN severe pain 01/14/25
amiodarone 200 mg tablet 200 mg PO BID Arrhythmia 90 days #180 tabs 01/17/25
carvedilol 6.25 mg tablet 6.25 mg PO BID Blood pressure 90 days #180 tabs 01/17/25
buspirone 5 mg tablet 5 mg PO BID 02/03/25
clindamycin HCl 300 mg capsule 300 mg PO Q12H 02/03/25
Home Medication Changes
stop celebrex
Pending Results: No
== END 2025-02-04 12:15 ==
LOC: CATH 10:26
PROVIDERS: Nurse Practitioner Adult Health; ATTENDING PHYSICIAN Internal Medicine Cardiovascular Disease; FAMILY PHYSICIAN Student in an Organized Health Care Education/Training Program
DX: L76.32 Postprocedural hematoma of skin and subcutaneous tissue following other procedure (principal); Y83.1 Surgical operation with implant of artificial internal device as the cause of abnormal reaction of the patient, or of later complication, without mention of misadventure at the time of the procedure; Z88.5 Allergy status to narcotic agent; Z88.0 Allergy status to penicillin; Z95.810 Presence of automatic (implantable) cardiac defibrillator; Z79.01 Long term (current) use of anticoagulants; E21.0 Primary hyperparathyroidism; E83.52 Hypercalcemia; F32.A Depression, unspecified; I25.10 Atherosclerotic heart disease of native coronary artery without angina pectoris; I45.10 Unspecified right bundle-branch block; I35.1 Nonrheumatic aortic (valve) insufficiency; M06.9 Rheumatoid arthritis, unspecified; E78.5 Hyperlipidemia, unspecified; M19.90 Unspecified osteoarthritis, unspecified site; I10 Essential (primary) hypertension; I47.20 Ventricular tachycardia, unspecified; Z79.899 Other long term (current) drug therapy; Z45.02 Encounter for adjustment and management of automatic implantable cardiac defibrillator
CPT/HCPCS: 10140; 36245; 80048; 83735; 85027; 87070; 93005